=== PATIENT | male | born 1980 | race Caucasian/White ===

== ENCOUNTER → 2020-11-24 06:57 | Outpatient (CLI) | payer OTHER, SELFPAY ==
[2020-11-24 18:17] LABS: SARS-CoV-2 RNA PCR Negative
== END ==
PROVIDERS: PCP Family Medicine; Visit Provider Physician Assistant
DX: R68.89 Other general symptoms and signs (principal); Z20.822 Contact with and (suspected) exposure to COVID-19
CPT/HCPCS: C9803; U0003; U0005

== ENCOUNTER 2021-02-16 08:55 | Outpatient (CLI) | payer OTHER, SELFPAY ==
--- NOTE | ~2021-02-16 | XR_ITS ---
EXAMINATION: XR shoulder RT min 2V DATE: 02/16/2021 09:17 INDICATION: Right shoulder pain. TECHNIQUE: 4 views of right shoulder were obtained. COMPARISON: None. FINDINGS: Bone alignment is normal. No fracture. 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 Joint spaces otherwise normal. IMPRESSION: 1. Osteolysis of distal clavicle, which may be seen with repetitive microtrauma or less commonly rheu matoid arthritis or hyperparathyroidism. Reviewed, dictated and finalized at location A. IMPRESSION: 1. Osteolysis of distal clavicle, which may be seen with repetitive microtrauma or less commonly rheumatoid arthritis or hyperparathyroidism.
== END 2021-02-16 08:56 | disposition home or self-care (01) ==
LOC: ANHIMG 08:59
PROVIDERS: PCP Family Medicine; Visit Provider Physician Assistant
DX: M25.511 Pain in right shoulder (principal)
CPT/HCPCS: 73030

== ENCOUNTER 2021-03-12 10:33 | Outpatient (CLI) | payer OTHER, SELFPAY ==
--- NOTE | ~2021-03-12 | CT_ITS ---
EXAMINATION: CT shoulder RT wo con DATE: 03/12/2021 11:01 INDICATION: Chronic right shoulder pain. TECHNIQUE: Computed tomography (CT) of the right shoulder was performed without intravenous contrast. Automated exposure control and iterative reconstruction technique were employed. The dose-length pro duct was 597.84 mGy-cm. COMPARISON: Right shoulder radiographs 02/16/2021 FINDINGS: Bone alignment is normal. No fracture. The glenohumeral joint is normal. There is osteolysi s of distal clavicle with sparing of some of the distal cortex. The acromioclavicular joint is otherw ise normal. There is no asymmetric fatty atrophy of the rotator cuff muscle bellies. IMPRESSION: 1. Osteolysis of distal clavicle, most likely secondary to repetitive microtrauma (such as weight lif ting). Reviewed, dictated and finalized at location A. PHONIC NURSE CASE MANAGER IMPRESSION: 1. Osteolysis of distal clavicle, most likely secondary to repetitive microtrau ma (such as weight lifting).
== END 2021-03-12 10:34 | disposition home or self-care (01) ==
LOC: ANHIMG 10:37
PROVIDERS: PCP Family Medicine; Visit Provider Family Medicine
DX: M25.511 Pain in right shoulder (principal); M89.511 Osteolysis, right shoulder; R93.89 Abnormal findings on diagnostic imaging of other specified body structures
CPT/HCPCS: 73200

== ENCOUNTER 2021-06-13 03:45 | Inpatient (IN) | payer OTHER, SELFPAY ==
[2021-06-13] VITALS (36 sets, daily range): BP systolic 121–164; BP diastolic 57–101; PULSE 72–105; RESP 14–97; TEMP 35.8–36.7; O2SAT 95–100
--- NOTE | ~2021-06-13 | XR_ITS ---
EXAMINATION: XR chest 2V 06/13/2021 04:15 INDICATION: Chest pain PROCEDURE: 2 view chest COMPARISON: 08/06/2012 FINDINGS: The lungs are clear. The cardiomediastinal silhouette is within normal limits. There are no pleural effusions. There is no pneumothorax suspected. IMPRESSION: 1: NO ACUTE CARDIOPULMONARY DISEASE. Reviewed, dictated and finalized at location A. ING MACHINE OPERATOR
--- NOTE | 2021-06-13 04:00 | ECG_ITS ---
Measurements Intervals [place] Rate: 100 P: 56 GA: 172 QRS: 43 QRSD: 85 T: 37 QT: 332 QTc: 430 Interpretive Statements SINUS TACHYCARDIA INCOMPLETE RIGHT BUNDLE BRANCH BLOCK BASELINE WANDER- II, III, AVL, AVF BORDERLINE ECG Electronically Signed On 06-13-2021 7:57:06 SOFTWARE BUILD ENGINEER by Syed Avalos D.O.
--- NOTE | 2021-06-13 04:11 | PC.NURSE ---
Patient taken to xray.
--- NOTE | 2021-06-13 04:12 | ED.CHESTPAIN ---
HPI - Chest Pain General Chief Complaint: Chest Pain Stated Complaint: chest pain Time Seen by Provider: 06/13/21 03:48 History of Present Illness HPI narrative: Patient is a 40-year-old male who presents ER with chest pain. Began yesterday afternoon. Left side. Going into his left jaw and gums as well as down his left arm. Progressed throughout the day. Became severe at 3 AM which prompted him to come to the ER for evaluation. Reports that the pain resolved prior to his arrival to the ER. Reports he is experiencing some flushed sweats with this. No acid reflux. No nausea or vomiting. Recently placed on steroids and azithromycin for sinus infection. Denies fevers or chills no cough. No exertional chest pain or shortness of breath. No aggravating factors. No recent trauma. Related Data Allergies Allergy/AdvReac Type Severity Reaction Status Date / Time No Known Allergies Allergy Verified 06/13/21 04:33 Review of Systems Review of Systems: All systems reviewed & are unremarkable except as noted in HPI and below Constitutional: Constitutional: Denies chills, Denies fever(s) and Denies weakness ENT: Reports nasal congestion and Denies sore throat Cardiovascular: Cardiovascular: Reports chest pain, Denies rapid heart rate and Reports radiating jaw, neck or arm pain Respiratory: Respiratory: Denies cough, Denies dyspnea and Denies wheezing Gastrointestinal: Gastrointestinal: Denies abdominal pain, Denies nausea and Denies vomiting Musculoskeletal: Musculoskeletal: Denies back pain, Denies arthralgias and Denies joint swelling PMFSH Past Medical History Medical History Asthma Surgical History Surgical History History of decompression of ulnar nerve (~2013) Rt Family History Family History Mother Family history of suicide, Onset Age: 59 Family history of bipolar disorder Sibling Patient's sister is in good health Father Acute myocardial infarction, Onset Age: 59 Hypertension Social History Social History Social History: Smoking packs per day: 1 Smoking cigarettes per day: 20.0 Years smoked: 12 Smoking pack-years: 12.00 Smoking status: Current every day smoker Tobacco type: cigarettes Second hand tobacco smoke exposure: Yes Alcohol intake: current Drinks per week: 3 Substance use: never Substance use type: does not use Gender identity (if verbalized by the patient): Male Sexual Orientation (if Verbalized by the Patient): Straight or Heterosexual Exam Narrative: GENERAL: Well-appearing, well-nourished, and in no acute distress. HEAD: Normocephalic, atraumatic. ENT: Mucous membranes moist. No pharyngeal erythema, uvula midline nonedematous, tonsils normal in appearance. NECK: Supple. No reproducible paraspinal muscular tenderness. CHEST: Clear to auscultation. No respiratory distress. No reproducible chest wall tenderness. HEART: Regular rate and rhythm. Normal peripheral pulses. ABDOMEN: Soft, nontender, nondistended. EXTREMITIES: Normal range of motion. No edema. SKIN: Warm, dry, no rash. NEURO: Alert and oriented x3. PSYCH: Normal mood and affect. Course Reevaluation(s) Reevaluation #1: Patient informed of results. Now reports recurrent chest pain left side 4/10 without radiation. Repeat EKG without change. Will place half inch Nitropaste and contact cardiology. Date: 06/13/21 Time: 05:40 Reevaluation #2: Discussed case with hospitalist and cardiology. [place] best for cardiology be primary since patient has no other medical problems and has a primary cardiac issue after speaking with the hospitalist. Patient being started on heparin and being placed 9 you. Date: 06/13/21 Time: 06:52 Vital Signs Vital signs: Vital Signs Pulse
[2021-06-13] MEDS: ASPIRIN 81 MG CHEWABLE TABLET 324 MG PO (04:17)
[2021-06-13 04:25] LABS: Basophils Absolute Auto 0.1 K/mm3 (0.0-0.1); Basophils Percent Auto 0.7 % (0.2-1.2); Eosinophils Absolute Auto 0.1 K/mm3 (0-0.3); Eosinophils Percent Auto 0.7 % (0-4.4); Hemoglobin 16.6 g/dL (14.0-18.0); Immature Granulocyte Absolute 0.08 K/mm3 (0.00-0.031); Immature Granulocyte Percent A 0.6 % (0-0.5); Lymphocytes Absolute Auto 2.68 K/mm3 (0.9-3.2); Lymphocytes Percent Auto 20.6 % (18.3-44.2); Mean Corpuscular HGB Conc 33.9 g/dl (32-36); Mean Corpuscular Hemoglobin 31.4 pg (26-34); Mean Corpuscular Volume 92.6 fl (80-100); Mean Platelet Volume 9.5 fl (7.4-10.4); Monocytes Absolute Auto 0.7 K/mm3 (0.1-0.6); Monocytes Percent Auto 5.4 % (2.6-8.5); Neutrophils Absolute Auto 9.4 K/mm3 (1.3-6.7); Platelet Count Result 306 k/mm3 (150-375); Red Blood Count 5.29 M/mm3 (4.6-6.20); Red Cell Distribution Width 12.7 % (11.5-14.5)
--- NOTE | 2021-06-13 04:32 | PC.NURSE ---
Talked to Sandhya in lab at 04:32 to add on D Dimer
[2021-06-13 04:47] LABS: Partial Thromboplastin Time 25.8 SECONDS (22.3-36.8); Prothrombin Time 12.4 Seconds (11.1-14.7)
[2021-06-13 04:50] LABS: Alanine Aminotransferase 30 U/L (4-50); Albumin Level 4.3 g/dL (3.5-5.1); Alkaline Phosphatase 74 U/L (38-126); Anion Gap 9 mmol/L (8-16); Aspartate Amino Transferase 28 U/L (17-59); Bilirubin,Total 0.3 mg/dL (0.2-1.3); Blood Urea Nitrogen 25 mg/dL (9-20); Calcium 9.6 mg/dL (8.4-10.2); Carbon Dioxide 26 mmol/L (22-30); Chloride 104 mmol/L (98-107); Estimated CRCL calculation 94 ml/min; Estimated Glomerular Filt Rate > 60; Glucose 113 mg/dL (65-110); Lipase 94 U/L (23-300); Potassium 4.2 mmol/L (3.4-5.0); Sodium 139 mmol/L (137-145)
[2021-06-13 05:19] LABS: Troponin I 0.088 ng/mL (0.000-0.034)
--- NOTE | 2021-06-13 05:31 | ECG_ITS ---
Measurements Intervals [place] Rate: 79 P: 55 AL: 190 QRS: 36 QRSD: 83 T: 34 QT: 355 QTc: 409 Interpretive Statements SINUS RHYTHM INCOMPLETE RIGHT BUNDLE BRANCH BLOCK BASELINE ARTIFACT- II, III, AVR, AVF, V1, V3-V6 BORDERLINE ECG Electronically Signed On 06-13-2021 7:56:27 TRUCK REPAIR SUPERVISOR by Syed Avalos D.O.
[2021-06-13 05:33] LABS: D Dimer < 0.22 ug/mL (<0.48)
[2021-06-13] MEDS: NITROGLYCERIN OINTMENT 1 INCH DOSE 0.5 INCH TRANSDERM (05:38)
[2021-06-13] MEDS: HEPARIN SODIUM 5,000 UNITS/ML VIAL 4000 UNITS IV PUSH (06:04)
[2021-06-13] MEDS: HEPARIN SOD/D5W 100 UNITS/ML 25,000 UNITS/250 ML BAG 10 UNITS IV CONT (06:30)
--- NOTE | 2021-06-13 07:00 | PC.NURSE ---
Patient to be taken up to floor at 0715, health diagnostics teacher aware.
--- NOTE | 2021-06-13 07:11 | PC.NURSE ---
Report taken from SARAH Garcia.
[2021-06-13 07:36] LABS: Troponin I 0.333 ng/mL (0.000-0.034)
[2021-06-13 10:54] LABS: Troponin I 0.713 ng/mL (0.000-0.034)
--- NOTE | 2021-06-13 11:26 | PM.CNCAR ---
Assessment and Plan Assessment and plan (1) Non-ST elevation CO (NSTEMI): Code(s): I21.4 - Non-ST elevation (NSTEMI) myocardial infarction Status: Acute Assessment and Plan: Symptoms are consistent with acute coronary syndrome in the form of a non ST elevation myocardial infarction. Since he has recurrent chest pain, I talked about the risks benefits alternatives of cardiac catheterization to define his anatomy. He understands and is agreeable. This will be performed today. Will continue IV heparin. Start aspirin 81 mg p.o. daily, metoprolol tartrate 25 mg p.o. b.i.d., nitroglycerin paste will be continued, atorvastatin 40 mg p.o. daily to be started (2) Tobacco use: Code(s): Z72.0 - Tobacco use Status: Acute (3) Bronchitis: Code(s): J40 - Bronchitis, not specified as acute or chronic Status: Acute (4) Asthma: Code(s): J45.909 - Unspecified asthma, uncomplicated Status: Acute History of Present Illness History of Present Illness Consult date/time: 06/13/21 11:26 Requesting physician: Jose Reyes MD Consult reason: chest pain and Other (Non-STEMI) Reason For Visit: NSTEMI Narrative: Reason consultation: Chest pain, non-STEMI Date of service 06/13/2021 Requesting provider: Dr. Reyes History: patient 40-year-old male who presents to the ER because of chest pain. He did have a recent upper respiratory tract infection treated with antibiotics and steroids. He had been feeling well up until recently whenever he developed some chest pain that was mild at around 12:00 p.m. yesterday. It did wax and wane for several hours but progressively worsened. By about 7:00 p.m. yesterday evening it started to be consistently present and it persisted and worsened to the point that at 3:00 a.m. it was severe and he came to the hospital for further evaluation and treatment. He describes the pain as squeezing. It radiates to the left arm and into the left neck. He was given nitroglycerin emergency department as well as aspirin with relief of his symptoms. He was sweaty as well as having some shortness of breath and no nausea. His troponins are positive and up trending. He has had some recurrence of his pain over the past hour or so and is now 4/10. He otherwise has been having no exertional chest pain, syncope, presyncope, paroxysmal nocturnal dyspnea, orthopnea, edema palpitations. No shortness of breath. He does smoke. He has a family history of heart disease including his father who a myocardial infarction 59 Review of Systems Review of Systems: All systems reviewed & are unremarkable except as noted in HPI and below Constitutional: Constitutional: Denies weakness Eyes: Eyes: Denies blurry vision ENT: Reports Normal hearing present Cardiovascular: Cardiovascular: Reports chest pain Respiratory: Respiratory: Denies dyspnea Gastrointestinal: Gastrointestinal: Denies abdominal pain Genitourinary: Genitourinary: Denies dysuria Musculoskeletal: Musculoskeletal: Denies neck pain Integumentary/Breasts: Skin/Breast: Denies dry skin Neurologic: Denies headache(s) Psychiatric: Psychiatric: Denies anxiety Endocrine: Endocrine: Denies fatigue Hematologic/Lymphatic: Hematologic/Lymphatic: Denies easy bleeding Allergic/Immunologic: Allergic/Immunologic: Denies GI upset with certain foods PMFSH Past Medical History Medical History Asthma Tobacco use Surgical History Surgical History History of decompression of ulnar nerve (~2013) Rt Family History Family History Mother Family history of suicide, Onset Age: 59 Family history of bipolar disorder Sibling Patient's sister is in good health Father Acute myocardial infarction, Onset Age: 59 Hypertension Social History Social History (Reviewed 06/13/21 @ 11:31 by Ganesh Tam
--- NOTE | 2021-06-13 11:43 | PM.IMHP ---
H&P: HPI History of Present Illness Date/Time: 06/13/21 11:43 Chief Complaint: Chest pain, non-STEMI Narrative: Date of service 06/13/2021 History: patient 40-year-old male who presents to the ER because of chest pain. He did have a recent upper respiratory tract infection treated with antibiotics and steroids. He had been feeling well up until recently whenever he developed some chest pain that was mild at around 12:00 p.m. yesterday. It did wax and wane for several hours but progressively worsened. By about 7:00 p.m. yesterday evening it started to be consistently present and it persisted and worsened to the point that at 3:00 a.m. it was severe and he came to the hospital for further evaluation and treatment. He describes the pain as squeezing. It radiates to the left arm and into the left neck. He was given nitroglycerin emergency department as well as aspirin with relief of his symptoms. He was sweaty as well as having some shortness of breath and no nausea. His troponins are positive and up trending. He has had some recurrence of his pain over the past hour or so and is now 4/10. He otherwise has been having no exertional chest pain, syncope, presyncope, paroxysmal nocturnal dyspnea, orthopnea, edema palpitations. No shortness of breath. He does smoke. He has a family history of heart disease including his father who a myocardial infarction 59 Review of Systems Review of Systems: All systems reviewed & are unremarkable except as noted in HPI and below Constitutional: Constitutional: Denies weakness Eyes: Eyes: Denies blurry vision ENT: Reports Normal hearing present Cardiovascular: Cardiovascular: Reports chest pain Respiratory: Respiratory: Denies dyspnea Gastrointestinal: Gastrointestinal: Denies abdominal pain Genitourinary: Genitourinary: Denies dysuria Musculoskeletal: Musculoskeletal: Denies back pain and Denies neck pain Integumentary/Breasts: Skin/Breast: Denies dry skin Neurologic: Denies headache(s) Psychiatric: Psychiatric: Denies anxiety Endocrine: Endocrine: Denies change in libido Hematologic/Lymphatic: Hematologic/Lymphatic: Denies easy bleeding Allergic/Immunologic: Allergic/Immunologic: Denies GI upset with certain foods PMFSH Past Medical History Medical History Asthma Tobacco use Surgical History Surgical History History of decompression of ulnar nerve (~2013) Rt Family History Family History Mother Family history of suicide, Onset Age: 59 Family history of bipolar disorder Sibling Patient's sister is in good health Father Acute myocardial infarction, Onset Age: 59 Hypertension Social History Social History Social History: Smoking packs per day: 1 Smoking cigarettes per day: 20.0 Years smoked: 14 Smoking pack-years: 14.00 Smoking status: Current every day smoker Tobacco type: cigarettes Second hand tobacco smoke exposure: Yes Alcohol intake: current Drinks per week: 2 Substance use: never Substance use type: does not use Gender identity (if verbalized by the patient): Male Sexual Orientation (if Verbalized by the Patient): Straight or Heterosexual Spiritual care concerns: No Meds Home Medications and Allergies Home Medications Medication Instructions Recorded Confirmed Type albuterol sulfate 90 mcg/actuation 2 inh INHALATION Q4H PRN #8.5 g 02/16/21 06/13/21 Rx aerosol inhaler prednisone 10 mg tablet See Rx Instructions PO DAILY 20 06/04/21 06/07/21 Rx Days #50 tablet Allergies Allergy/AdvReac Type Severity Reaction Status Date / Time No Known Allergies Allergy Verified 06/13/21 04:33 Vital Signs Vital Signs - 24 hr 06/13/21 03:52 06/13/21 03:53 06/13/21 04:00 Temperature Pulse Rate 101 H 101 H 90 Res
[2021-06-13 12:26] LABS: Partial Thromboplastin Time 29.6 SECONDS (22.3-36.8)
--- NOTE | 2021-06-13 13:46 | P.PCNCC_ITS ---
Cardiac Cath Procedure Note Date of procedure:: 06/13/21 Performing physician:: Stone Ramos MD Assessment and Plan Additional Plan PROCEDURE 1. LHC and coronary angiogram 2. PCI to acute subtotal occlusion of LCX culprit lesion of NSTEMI INDICATION NSTEMI HISTORY 40 Yrs old male admitted with chest pain, Pain is recurrent today and more persistent. Trop is rising. PROCEDURE DETAILS Consent obtained and access site prepped and draped in sterile fashion Sedation was done with versed 2 mg and fentanyl 100 mcg with continuos monitoring and supervision by myself and coding quality coordinator Obtained in rt radial artery with modified Seldinger technique Coronary angiogram was done using Tig HEMODYNAMICS Aorta: 140/70 LV: 140/25 CORONARY ANGIOGRAM Left main: Normal gives LAD, LCX and ramus LAD: Large vessel wraps around apex, mild distal disease (<30%), gives one large diagonal with proximal mild (< 30%) stenosis LCX: Intermediate size vessel cont at OM3, OM1 and OM2 are small. mid LCX has 99% stenosis subtotal occlusion, JESUS 2 flow. Culprit lesion for NSTEMI RCA: dominant, separate ostium from conus and difficult to engage, distal RCA with 40% stenosis. gives PDA and rPL with no obstructive disease. PCI DETAILS #1 lesion: mid LCX Pre-intervention: mid LCX has 99% stenosis subtotal occlusion, JESUS 2 flow. Culprit lesion for NSTEMI, class B Anticoagulation with heparin to target ACT > 250 sec Guide catheter: CLS 3.0 5 F Guide wire: Runthrough used to cross lesion into distal vessel Balloon angioplasty: Emerge 2.5 * 12 mm balloon inflated at 12 ACE Stent: Resolute Anurag 3.0 * 18 mm stent delivered at 12 ACE Post-intervention: [employer] apex 3.0 * 8 mm inflated at 20 ACE COMPLICATION None CONCLUSION Successful PCI to LCX culprit lesion for NSTEMI with one BA 3.0 * 18 mm Anurag stent RECOMMENDATION DAPT Statin
[2021-06-13 13:56] LABS: Activated Clotting Time 238 SEC (74-137)
[2021-06-13 13:56] LABS: Activated Clotting Time 243 SEC (74-137)
--- NOTE | 2021-06-13 16:59 | ADMGEN ---
This patient, Celso Dial, was admitted to IMU Room 203-01 at 0727. Patient/family oriented to hospital policies and general routines including ID bracelet, bed and alarms, visiting hours, pain management, procedures, bathroom and other care routines, personal items, smoking policy, room service/diet, and visiting hours. Information on how to activate the Rapid Response Team has been discussed. Patient/Family are encouraged to report perceived risks to care and to ask questions if they do not understand what they are told or what they should do.
[2021-06-13] MEDS: TICAGRELOR 90 MG TABLET PO (20:40)
[2021-06-13] MEDS: METOPROLOL TARTRATE 25 MG TABLET PO (20:40)
[2021-06-14] VITALS (9 sets, daily range): BP systolic 110–138; BP diastolic 67–82; PULSE 63–74; RESP 16–20; TEMP 36.4–36.6; O2SAT 98–99
--- NOTE | 2021-06-14 | ECHO_ITS ---
Patient Info Name: Celso Dial Age: 40 years : 1980 Gender: Male Ht: 72 in Wt: 181 lbs BSA: 2.05 m2 HR: 65 bpm BP: 110 / 70 mmHg Heart Rhythm: Sinus Rhythm Technical Quality: Fair Exam Date: 06/14/2021 11:25 AM Exam Location: [facility] Pulmonary Patient Status: Inpatient Admit Date: 06/13/2021 Staff Ordering Physician: Ganesh Pratt MD Steam And Power Supervisor: Radha Guillory RDCS Attending Provider: Ganesh Pratt MD Referring Physician: Terence MARTINO; Exam Type: CA echo doppler color flow Study Info Indications - nstemi Complete two-dimensional, color flow and Doppler transthoracic echocardiogram is performed. Summary 1. Complete two-dimensional, color flow and Doppler transthoracic echocardiogram is performed. 2. Normal 2D/Doppler echocardiogram. Left Ventricle Left ventricular chamber dimension is normal. Left ventricular systolic function is normal, estimated at 60-65%. The left ventricular diastolic function is normal. Right Ventricle Right ventricular chamber dimension is normal. Left Atria Left atrial chamber dimension is normal. Right Atria Right atrial chamber dimension is normal. Aortic Valve The aortic valve is normal. Pulmonic Valve The pulmonic valve is normal. Mitral Valve The mitral valve has normal leaflets. Tricuspid Valve The tricuspid valve leaflets are normal. Pericardium/Pleural The pericardium appears normal. Aorta The aortic root size at the sinus of Valsalva is normal. Left Ventricular Outflow Tract Name Value Normal LVOT 2D LVOT Diameter 2.0 cm LVOT Doppler LVOT Peak Gradient 2 mmHg LVOT Mean Gradient 1 mmHg LVOT VTI 13 cm LVOT VTI/AV VTI Ratio 0.7 LVOT Stroke Volume 42 ml LVOT CO 2.6 l/min LVOT CI 1.3 l/min/m2 Pulmonic Valve Name Value Normal RVOT Doppler RVOT Peak Gradient 1 mmHg PV Doppler PV Peak Gradient 3 mmHg Mitral Valve Name Value Normal MV Doppler MV Decel [place] 534 cm/s2 MV PHT 46 ms MV Area (PHT) 4.8 cm2 4.0-5.0 MV Diastolic Function MV E Peak Velocity 85 cm/s MV A Peak Velocity
[2021-06-14 05:05] LABS: Basophils Absolute Auto 0.1 K/mm3 (0.0-0.1); Basophils Percent Auto 0.7 % (0.2-1.2); Eosinophils Absolute Auto 0.2 K/mm3 (0-0.3); Eosinophils Percent Auto 1.4 % (0-4.4); Hematocrit 45.9 % (42.0-52.0); Hemoglobin 15.3 g/dL (14.0-18.0); Immature Granulocyte Absolute 0.09 K/mm3 (0.00-0.031); Immature Granulocyte Percent A 0.8 % (0-0.5); Lymphocytes Absolute Auto 2.84 K/mm3 (0.9-3.2); Lymphocytes Percent Auto 24.7 % (18.3-44.2); Mean Corpuscular HGB Conc 33.3 g/dl (32-36); Mean Corpuscular Hemoglobin 30.6 pg (26-34); Mean Corpuscular Volume 91.8 fl (80-100); Mean Platelet Volume 9.3 fl (7.4-10.4); Monocytes Absolute Auto 0.7 K/mm3 (0.1-0.6); Monocytes Percent Auto 6.1 % (2.6-8.5); Neutrophils Absolute Auto 7.6 K/mm3 (1.3-6.7); Neutrophils Percent Auto 66.3 % (45.5-73.1); Platelet Count Result 298 k/mm3 (150-375); White Blood Count 11.5 K/mm3 (4.5-10.0)
[2021-06-14] MEDS: ASPIRIN 81 MG ENTERIC TABLET PO (10:21)
[2021-06-14] MEDS: METOPROLOL TARTRATE 25 MG TABLET PO (10:21)
[2021-06-14] MEDS: lisinopriL 2.5 MG TABLET PO (10:22)
[2021-06-14] MEDS: TICAGRELOR 90 MG TABLET PO (10:22)
--- NOTE | 2021-06-14 12:18 | PC.NURSE ---
Cardiopulmonary Rehab Services flyer was given to patient.
--- NOTE | 2021-06-14 12:59 | PM.DS ---
DS: Admitting Diagnosis Discharge Date 06/14/2021 Admitting Diagnosis Chest pain DS: Discharge Diagnosis Discharge Diagnosis (1) Non-ST elevation NE (NSTEMI): Code(s): I21.4 - Non-ST elevation (NSTEMI) myocardial infarction Status: Acute Assessment and Plan: Presented with chest pain symptoms consistent with acute coronary syndrome in the form of a non ST-elevation myocardial infarction. He was taken to the cardiac labor custodian and was found to have a 99% subtotal occlusion of the mid circumflex. This was the culprit lesion for his NSTEMI. This lesion was intervened on with a 3.0 x 18 mm [place] stent. On dual anti-platelet therapy with aspirin and Brilinta. He has been placed on a statin. No persistent chest pain. Sinus rhythm on telemetry no ectopy (2) Tobacco use: Code(s): Z72.0 - Tobacco use Status: Acute Assessment and Plan: Tobacco abuse counseling was performed. (3) Asthma: Code(s): J45.909 - Unspecified asthma, uncomplicated Status: Acute Assessment and Plan: Currently quiescent (4) Bronchitis: Code(s): J40 - Bronchitis, not specified as acute or chronic Status: Acute Assessment and Plan: Recent treatment with steroids and antibiotics DS: Summary Hospital Course Hospital Course: Patient presented to the hospital with complaints of chest pain and no evidence of myocardial ischemia by elevated troponin levels. He did not have any EKG changes. He was taken to the cardiac labor custodian for coronary angiogram in the setting of NSTEMI. He was found have a 99% occlusion to his mid circumflex artery. This was stented and resulted in good jew of flow. Patient has recovered without complications in the hospital. He has remained free of chest pain since his intervention. Today, he is feeling well and is in stable condition. Appropriate for discharge home today. Time spent discussing smoking cessation with patient: 3 to 10 minutes Status at Discharge Functional status at discharge: independent ambulation Time Spent with Patient Time attestation: Total time spent providing and/or coordinating discharge services: Time spent: Greater than 30 minutes Exam Narrative: Awake alert oriented. Appears stated age Const: General: uncomfortable HENMT: General nose exam: Normal nares present Eyes: Sclera: sclerae normal Neck: Neck: supple and no JVD Carotids: no bruits Chest: Other: No reproducible chest wall pain to palpation Resp: Auscultation: clear to auscultation bilaterally Cardio: Rate: regular rate Rhythm: regular rhythm GI: Inspection: non-distended Auscultation: normal bowel sounds Skin: General skin exam: normal color Neuro: Cranial nerves: Yes Normal hearing present Cognition (Neuro): normal cognition Speech: normal speech Extrem: General: normal to inspection and no edema Psych: Mental Status: mental status grossly normal DS: Data Data Completed and Pending Labs on day of discharge: Labs from last 24 hours 06/14/21 06/13/21 06/13/21 04:35 13:29 13:11 WBC 11.5 H RBC 5.00 Hgb 15.3 Hct 45.9 MCV 91.8 MCH 30.6 MCHC 33.3 RDW 13.0 Plt Count 298 MPV 9.3 Immature Gran % (Auto) 0.8 H Neut % (Auto) 66.3 Lymph % (Auto) 24.7 [place] % (Auto) 6.1 Eos % (Auto) 1.4 Baso % (Auto) 0.7 Lymph # (Auto) 2.84 [place] # (Auto) 0.7 H Eos # (Auto) 0.2 Baso # (Auto) 0.1 Abs Immat Gran (auto) 0.09 H Absolute Neuts (auto) 7.6 H Absolute Nucleated RBC 0.0 Nucleated RBC % 0.0 Activ Coag Time [place] 243 H 238 H Discharge Plan Discharge Consulting providers: Ganesh Pratt Discharging Clinician: Rosalia Wise Patient Disposition: Home, Self-Care Activity: may shower Diet: heart healthy Wound Care Instructions: other - see discharge instructions Discharge Instructions:
== END 2021-06-14 14:50 | disposition home or self-care (01) | DRG 247 ==
LOC: ANHED 04:21 → ANHIMU 06:47
PROVIDERS: Internal Medicine Interventional Cardiology; Admitting Provider Internal Medicine Cardiovascular Disease; Emergency Provider Emergency Medicine; PCP Family Medicine; Visit Provider Internal Medicine Cardiovascular Disease
PROC: 4A023N7 Measurement of Cardiac Sampling and Pressure, Left Heart, Percutaneous Approach (ICD-10-PCS; CPT 93452; principal; 2021-06-13 12:05)
PROC: 027034Z Dilation of Coronary Artery, One Artery with Drug-eluting Intraluminal Device, Percutaneous Approach (ICD-10-PCS; CPT 92928; 2021-06-13 12:05)
DX: I21.4 Non-ST elevation (NSTEMI) myocardial infarction (principal); J45.909 Unspecified asthma, uncomplicated; F17.210 Nicotine dependence, cigarettes, uncomplicated
CPT/HCPCS: 36415; 71046; 80053; 83690; 84484; 85025; 85380; 85610; 85730; 93005; 93306; 93458; 96374; 99285; A9270; C1725; C1769; C1874; C1887; C1894; C9600; G0378; J0131; J1644; J2250; J3010; J7040

== ENCOUNTER 2021-06-15 16:24 | Observation (INO) | payer OTHER, SELFPAY ==
[2021-06-15] VITALS (22 sets, daily range): BP systolic 103–127; BP diastolic 46–78; PULSE 61–76; RESP 12–25; TEMP 36.1–36.7; O2SAT 97–100; BMI 25.2
--- NOTE | ~2021-06-15 | XR_ITS ---
EXAMINATION: XR chest 2V DATE: 06/15/2021 17:03 INDICATION: Left-sided chest pain. TECHNIQUE: PA and lateral views of the chest were obtained. COMPARISON: Chest radiograph dated 06/13/2021 FINDINGS: The lungs remain clear with no focal airspace opacities, pulmonary edema, pleural effusion or pneumot horax. The cardiomediastinal silhouette is normal. Visualized bones and soft tissues are unremarkable . IMPRESSION: Normal chest radiograph. Reviewed, dictated and finalized at location A. EATION THERAPIST IMPRESSION: Normal chest radiograph.
--- NOTE | 2021-06-15 16:25 | ECG_ITS ---
Measurements Intervals [place] Rate: 70 P: 39 AR: 164 QRS: 38 QRSD: 83 T: 0 QT: 366 QTc: 396 Interpretive Statements SINUS RHYTHM BASELINE ARTIFACT- I, II, III, AVR, AVF, V2-V6 NORMAL ECG Electronically Signed On 06-15-2021 18:14:16 GAS STATION CLERK by Syed Avalos D.O.
[2021-06-15] MEDS: ASPIRIN 81 MG CHEWABLE TABLET 324 MG PO (16:51)
[2021-06-15 16:55] LABS: Basophils Absolute Auto 0.1 K/mm3 (0.0-0.1); Basophils Percent Auto 0.8 % (0.2-1.2); Eosinophils Absolute Auto 0.2 K/mm3 (0-0.3); Eosinophils Percent Auto 1.6 % (0-4.4); Hematocrit 49.2 % (42.0-52.0); Hemoglobin 16.4 g/dL (14.0-18.0); Immature Granulocyte Percent A 0.7 % (0-0.5); Lymphocytes Absolute Auto 3.54 K/mm3 (0.9-3.2); Lymphocytes Percent Auto 24.4 % (18.3-44.2); Mean Corpuscular HGB Conc 33.3 g/dl (32-36); Mean Platelet Volume 9.1 fl (7.4-10.4); Monocytes Absolute Auto 0.9 K/mm3 (0.1-0.6); Monocytes Percent Auto 6.1 % (2.6-8.5); Neutrophils Absolute Auto 9.6 K/mm3 (1.3-6.7); Neutrophils Percent Auto 66.4 % (45.5-73.1); Platelet Count Result 319 k/mm3 (150-375); Red Blood Count 5.29 M/mm3 (4.6-6.20); Red Cell Distribution Width 12.7 % (11.5-14.5); White Blood Count 14.5 K/mm3 (4.5-10.0)
[2021-06-15 17:01] LABS: INR 0.9; Prothrombin Time 11.7 Seconds (11.1-14.7)
[2021-06-15 17:02] LABS: Partial Thromboplastin Time 25.6 SECONDS (22.3-36.8)
[2021-06-15 17:04] LABS: Alanine Aminotransferase 39 U/L (4-50); Albumin Level 4.4 g/dL (3.5-5.1); Alkaline Phosphatase 73 U/L (38-126); Anion Gap 4 mmol/L (8-16); Aspartate Amino Transferase 31 U/L (17-59); Bilirubin,Total 0.4 mg/dL (0.2-1.3); Blood Urea Nitrogen 18 mg/dL (9-20); Calcium 9.5 mg/dL (8.4-10.2); Carbon Dioxide 32 mmol/L (22-30); Chloride 102 mmol/L (98-107); Estimated CRCL calculation 94 ml/min; Estimated Glomerular Filt Rate > 60; Glucose 100 mg/dL (65-110); Lipase 58 U/L (23-300); Potassium 4.4 mmol/L (3.4-5.0); Sodium 138 mmol/L (137-145)
[2021-06-15 17:19] LABS: Troponin I 0.353 ng/mL (0.000-0.034)
--- NOTE | 2021-06-15 17:57 | ED.CHESTPAIN ---
HPI - Chest Pain General Chief Complaint: Chest Pain Stated Complaint: chest pain Time Seen by Provider: 06/15/21 17:02 History of Present Illness HPI narrative: Patient is a 40-year-old male who presents ER with left-sided chest pain. Symptoms began 1 hour prior to arrival. They resolved after taking aspirin here. Pain was in the left chest just beneath the pectoralis with radiation down the left arm with some tingling in the fourth and fifth digit in the back of the hand. Onset at rest. Associated with some sweating. No shortness of breath. Patient had a stent placed in the left circumflex artery 2 days ago, has been compliant with all home medication. Related Data Allergies Allergy/AdvReac Type Severity Reaction Status Date / Time No Known Allergies Allergy Verified 06/13/21 04:33 Review of Systems Review of Systems: All systems reviewed & are unremarkable except as noted in HPI and below Constitutional: Constitutional: Denies chills, Denies fever(s) and Denies weakness Comments: Sweats Cardiovascular: Cardiovascular: Reports chest pain, Denies rapid heart rate and Reports radiating jaw, neck or arm pain Respiratory: Respiratory: Denies cough, Denies dyspnea and Denies wheezing Gastrointestinal: Gastrointestinal: Denies abdominal pain, Denies nausea and Denies vomiting Neurologic: Denies focal weakness and Reports numbness PMFSH Past Medical History Medical History Asthma CAD (coronary atherosclerotic disease) Myocardial infarct Tobacco use Surgical History Surgical History (Updated 06/15/21 @ 18:25 by Jose Reyes MD) History of decompression of ulnar nerve (~2013) Rt History of percutaneous coronary intervention Stent left circumflex 06/13/21. Family History Family History Mother Family history of suicide, Onset Age: 59 Family history of bipolar disorder Sibling Patient's sister is in good health Father Acute myocardial infarction, Onset Age: 59 Hypertension Social History Social History Social History: Smoking packs per day: 1 Smoking cigarettes per day: 20.0 Years smoked: 14 Smoking pack-years: 14.00 Smoking status: Current every day smoker Tobacco type: cigarettes Second hand tobacco smoke exposure: Yes Alcohol intake: current Drinks per week: 2 Substance use: never Substance use type: does not use Gender identity (if verbalized by the patient): Male Sexual Orientation (if Verbalized by the Patient): Straight or Heterosexual Spiritual care concerns: No Exam Narrative: GENERAL: Well-appearing, well-nourished, and in no acute distress. HEAD: Normocephalic, atraumatic. ENT: Mucous membranes moist. CHEST: Clear to auscultation. No respiratory distress. HEART: Regular rate and rhythm. Normal peripheral pulses. ABDOMEN: Soft, nontender, nondistended. EXTREMITIES: Normal range of motion. No edema. Well-healed puncture site right wrist. SKIN: Warm, dry, no rash. NEURO: Alert and oriented x3. PSYCH: Normal mood and affect. Course Course Emergency Course: Discussed with cardiology. Will admit for observation. We will put an order for evening medication and then keep n.p.o. at midnight. Patient chest pain-free at this time. Discussed treatment plan and patient verbalized understanding. Vital Signs Vital signs: Vital Signs Temperature 97 F L 06/15/21 16:30 Pulse Rate 73 06/15/21 16:30 Respiratory Rate 18 06/15/21 16:30 Blood Pressure 127/78 06/15/21 16:30 Pulse Oximetry 100 06/15/21 16:30 Temperature 97 F L 06/15/21 16:30 Pulse Rate 73 06/15/21 16:30 Respiratory Rate 18 06/15/21 16:30 Blood Pressure 127/78 06/15/21 16:30 Pulse Oximetry 100 06/15/21 16:30 MDM - Chest Pain Lab Data Result diagrams: 06/15/21 16:44 06/15/21 16:44 Labs: Lab Resu
[2021-06-15 20:44] LABS: Troponin I 0.338 ng/mL (0.000-0.034)
--- NOTE | 2021-06-15 20:49 | ADMGEN ---
This patient, Celso Dial, was admitted to IMU Room 214-01. Patient/family oriented to hospital policies and general routines including ID bracelet, bed and alarms, visiting hours, pain management, procedures, bathroom and other care routines, personal items, smoking policy, room service/diet, and visiting hours. Information on how to activate the Rapid Response Team has been discussed. Patient/Family are encouraged to report perceived risks to care and to ask questions if they do not understand what they are told or what they should do.
[2021-06-15] MEDS: TICAGRELOR 90 MG TABLET PO (20:58)
[2021-06-15] MEDS: METOPROLOL TARTRATE 25 MG TABLET PO (20:58)
[2021-06-15] MEDS: ATORVASTATIN 40 MG TABLET 80 MG PO (20:58)
[2021-06-16] VITALS (7 sets, daily range): BP systolic 117–120; BP diastolic 57–61; PULSE 58–66; RESP 12–20; TEMP 36.6–37.2; O2SAT 97–98
[2021-06-16 00:04] LABS: Troponin I 0.332 ng/mL (0.000-0.034)
--- NOTE | 2021-06-16 09:00 | PM.IMHP ---
H&P: HPI History of Present Illness Date/Time: 06/16/21 09:00 Chief Complaint: Chest pain Narrative: This is a 40-year-old man I am seeing this morning after her he was admitted from the emergency room last evening with the recurrence of some chest pain that was creating concern yesterday evening. The patient is known to our practice and was just recently found to have coronary artery disease this past weekend when he presented to the hospital with intermittent ischemic chest pain and evidence of acute coronary syndrome by elevation of troponin. He was brought urgently to the cardiac catheterization lab on Monday last week and found to have high-grade proximal stenosis of the circumflex which was treated successfully using a drug-eluting stent with a good angiographic result and no complications. He did not have any significant coronary disease other than this. He had an uneventful recovery and was discharged from the hospital Monday. He came into they emergency room last evening because he called the office reporting the recurrence of chest pain. He was appropriately directed to the emergency room and then readmitted to the hospital. His ECG upon arrival does not show any significant ST segment abnormalities. His troponin levels are slightly elevated at 0.3 but are flat and reduced from the levels that were seen this past weekend. He is asymptomatic this morning and feels well. He states that the pain he had yesterday was not similar to his previous ischemic pain in the sense that that pain was primarily in the jaw and the mouth with radiation into the shoulders this was a dull mild aching pain in the low substernal region. Because of the recent PCI however he was of course concerned about his condition. He was discharged on appropriate medical regimen of aspirin, Brilinta, lisinopril, metoprolol and atorvastatin. He reports to be compliant with his medication. Reviewed the importance of compliance with his anti-platelet regimen he understands this well. Review of Systems Constitutional: Constitutional: Reports no additional constitutional complaints Eyes: Eyes: Reports no additional eye complaints ENT: Reports system reviewed and no additional complaints, except as documented Cardiovascular: Cardiovascular: Reports as per HPI Respiratory: Respiratory: Reports no additional respiratory complaints Gastrointestinal: Gastrointestinal: Reports no additional gastrointestinal complaints Musculoskeletal: Musculoskeletal: Reports no additional musculoskeletal complaints Integumentary/Breasts: Skin/Breast: Reports system reviewed and no additional complaints, except as docu Neurologic: Reports system reviewed and no additional complaints, except as documented [facility] Past Medical History Medical History Asthma CAD (coronary atherosclerotic disease) Myocardial infarct Tobacco use Surgical History Surgical History (Updated 06/15/21 @ 18:25 by Jose Reyes MD) History of decompression of ulnar nerve (~2013) Rt History of percutaneous coronary intervention Stent left circumflex 06/13/21. Family History Family History Mother Family history of suicide, Onset Age: 59 Family history of bipolar disorder Sibling Patient's sister is in good health Father Acute myocardial infarction, Onset Age: 59 Hypertension Social History Social History Social History: Smoking packs per day: 1 Smoking cigarettes per day: 20.0 Years smoked: 14 Smoking pack-years: 14.00 Smoking status: Current every day smoker Tobacco type: cigarettes Second hand tobacco smoke exposure: Yes Alcohol intake: current Drinks per week: 2 Substance use: never Substance use type: does not use Gender identity (if verbalized by the patient): Male Sexual Orientation (if Verbalized by the Patient): Straight or He
--- NOTE | 2021-06-16 10:05 | PM.DS ---
DS: Admitting Diagnosis Discharge Date 06/16/2021 Admitting Diagnosis chest pain DS: Discharge Diagnosis Discharge Diagnosis (1) Chest pain: Code(s): R07.9 - Chest pain, unspecified Status: Acute DS: Summary Hospital Course Reason for hospitalization: chest pain Hospital Course: this is a 40-year-old man who last weekend last weekend was hospitalized with chest pain evidence of acute coronary syndrome. He was found to have single-vessel coronary artery disease at that time and underwent successful PCI with drug-eluting stent to the proximal circumflex. He did well and was discharged the next day. He is. Some pain yesterday afternoon which was self-limited a a atypical sounding and not similar to his previous ischemia from last week. Because of the symptoms however he was sent to the emergency room for evaluation. His ECG was found to be normal his biomarkers were very slightly elevated but downtrending from the levels that were seen last weekend. He had no other recurrence of symptoms and was comfortable through the night. It was clear the patient had not sustained or experienced an abrupt stent thrombosis and discharged home was recommended. The patient has follow-up already scheduled in our office from the discharge this past weekend. No additional discharge instructions were necessary beyond that. Status at Discharge Functional status at discharge: independent ambulation Overall status at discharge: patient is back to baseline Time Spent with Patient Time attestation: Total time spent providing and/or coordinating discharge services: Time spent: Less than 30 minutes Exam Const: General: comfortable and no acute distress HENMT: Mouth: Yes moist mucous membranes Eyes: Sclera: sclerae normal Pupils: Equal, round and reactive pupils present Neck: Neck: supple and no JVD Resp: Effort & Inspection: normal respiratory effort Auscultation: clear to auscultation bilaterally Cardio: Rate: regular rate Rhythm: regular rhythm Other: No murmur no gallop GI: GI Palp: Yes Soft to palpation Auscultation: normal bowel sounds Skin: General skin exam: normal color Extrem: General: normal to inspection DS: Data Data Completed and Pending Labs on day of discharge: Labs from last 24 hours 06/15/21 06/15/21 06/15/21 22:41 19:53 16:44 WBC RBC Hgb Hct MCV MCH MCHC RDW Plt Count MPV Immature Gran % (Auto) Neut % (Auto) Lymph % (Auto) [place] % (Auto) Eos % (Auto) Baso % (Auto) Lymph # (Auto) [place] # (Auto) Eos # (Auto) Baso # (Auto) Abs Immat Gran (auto) Absolute Neuts (auto) Absolute Nucleated RBC Nucleated RBC % PT INR APTT Sodium 138 Potassium 4.4 Chloride 102 Carbon Dioxide 32 H Anion Gap 4 L BUN 18 Creatinine 1.00 Estim Creat Clear Calc 94 Estimated GFR > 60 Glucose 100 Calcium 9.5 Total Bilirubin 0.4 AST 31 ALT 39 Alkaline Phosphatase 73 Troponin I 0.332 H* 0.338 H* 0.353 H* Total Protein 7.0 Albumin 4.4 Lipase 58 06/15/21 06/15/21 16:44 16:44 WBC 14.5 H RBC 5.29 Hgb 16.4 Hct 49.2 MCV 93.0 MCH 31.0 MCHC 33.3 RDW 12.7 Plt Count 319 MPV 9.1 Immature Gran % (Auto) 0.7 H Neut % (Auto) 66.4 Lymph % (Auto) 24.4 Charlotte % (Auto) 6.1 Eos % (Auto) 1.6 Baso % (Auto) 0.8 Lymph # (Auto) 3.54 H [place] # (Auto) 0.9 H Eos # (Auto) 0.2 Baso # (Auto) 0.1 Abs Immat Gran (auto) 0.10 H Absolute Neuts (auto) 9.6 H Absolute Nucleated RBC 0.0 Nucleated RBC % 0.0 PT 11.7 INR 0.9 APTT 25.6 Sodium Potassium Chloride Carbon Dioxide Anion Gap BUN Creatinine Estim Creat Clear Calc Estimated GFR Glucose Calcium Total Bilirubin AST ALT Alkaline Phosphatase Troponin I Total Protein Albumin Lipase Discharge Plan Discharge Attending physic
== END 2021-06-16 10:45 | disposition home or self-care (01) ==
LOC: ANHED 17:02 → ANHIMU 18:28
PROVIDERS: Admitting Provider Internal Medicine Cardiovascular Disease; Emergency Provider Emergency Medicine; PCP Family Medicine; Visit Provider Specialist
DX: R07.9 Chest pain, unspecified (principal); I25.10 Atherosclerotic heart disease of native coronary artery without angina pectoris; I25.2 Old myocardial infarction; J45.909 Unspecified asthma, uncomplicated; F17.210 Nicotine dependence, cigarettes, uncomplicated; Z28.21 Immunization not carried out because of patient refusal; Z79.82 Long term (current) use of aspirin
CPT/HCPCS: 36415; 71046; 80053; 83690; 84484; 85025; 85610; 85730; 93005; 99285; A9270; G0378

== ENCOUNTER 2021-07-15 07:15 | Outpatient (RCR) | payer OTHER, SELFPAY ==
[2021-06-22 08:59] VITALS: PULSE 65
== END 2021-07-21 09:13 | disposition home or self-care (01) ==
LOC: ANHCPREHAB 07:15
PROVIDERS: PCP Family Medicine; Visit Provider Internal Medicine Cardiovascular Disease
DX: Z95.5 Presence of coronary angioplasty implant and graft (principal)
CPT/HCPCS: 93798

== ENCOUNTER 2021-08-12 14:14 | Outpatient (CLI) | payer OTHER, SELFPAY ==
--- NOTE | ~2021-08-12 | XR_ITS ---
EXAMINATION: XR knee LT 3V DATE: 08/12/2021 14:47 INDICATION: Left knee pain. Effusion. TECHNIQUE: 3 views of left knee were obtained. COMPARISON: None. FINDINGS: Bone alignment is normal. No fracture. There is mild osteoarthritis of lateral and patellof emoral compartments characterized by tiny osteophytes. No joint space narrowing. No knee joint effusi on. IMPRESSION: 1. Mild left knee osteoarthritis. Reviewed, dictated and finalized at location B.
== END 2021-08-12 14:15 | disposition home or self-care (01) ==
PROVIDERS: PCP Family Medicine; Visit Provider Family Medicine
DX: M25.462 Effusion, left knee (principal); M17.12 Unilateral primary osteoarthritis, left knee
CPT/HCPCS: 73562

== ENCOUNTER 2021-10-23 10:10 | Emergency (ER) | payer OTHER, SELFPAY ==
[2021-10-23 10:33] VITALS: BP 140/77; PULSE 99; RESP 16; TEMP 36.9; O2SAT 99
--- NOTE | 2021-10-23 11:16 | ED.URI ---
HPI - URI/Sore Throat General Chief Complaint: Upper Respiratory Infection Stated Complaint: Sinus,Congestion History of Present Illness HPI Narrative: Patient is a 41-year-old male who presents to the [facility] via POV for evaluation of upper respiratory symptoms that have been present for 3 days. Additionally, he reports nasal congestion and chest congestion. No relief with Mucinex. Nothing improves symptoms. Congestion worsens when outside Pt reports he is usually prescribed prednisone by his PCP, Dr. Wing when he has sinus infections . Related Data Allergies Allergy/AdvReac Type Severity Reaction Status Date / Time No Known Allergies Allergy Verified 10/23/21 10:39 Review of Systems Review of Systems: Denies history of COPD, bronchitis, and pneumonia. Denies current/past tobacco use. Pertinent negatives: fever, sweats, chills, change in appetite, fatigue, skin color changes, headache, nasal discharge, dizziness, lymphadenopathy, sinus problems, ear pain/drainage, chest pain, heart murmurs, heart palpitations, shortness of breath, wheezing, cyanosis, hemoptysis, hoarseness, orthopnea, pleuritic pain, nausea, vomiting, diarrhea, and myalgias. [facility] Past Medical History Medical History Asthma CAD (coronary atherosclerotic disease) Myocardial infarct Tobacco use Surgical History Surgical History History of decompression of ulnar nerve (~2013) Rt History of percutaneous coronary intervention Stent left circumflex 06/13/21. Family History Family History Mother Family history of suicide, Onset Age: 59 Family history of bipolar disorder Sibling Patient's sister is in good health Father Acute myocardial infarction, Onset Age: 59 Hypertension Social History Social History Social History: Smoking packs per day: 0.25 Smoking cigarettes per day: 5.0 Years smoked: 20 Smoking pack-years: 5.00 Smoking status: Current every day smoker Tobacco type: cigarettes Second hand tobacco smoke exposure: Yes Alcohol intake: current Drinks per week: 3 Substance use: never Substance use type: does not use Gender identity (if verbalized by the patient): Male Sexual Orientation (if Verbalized by the Patient): Straight or Heterosexual Spiritual care concerns: No Comments I have reviewed and agree with the patient's past medical, surgical, social, and family hx as documented by the RN. There is no relevant family history pertinent to the presenting complaint. Exam Narrative: GENERAL: Well-appearing, well-nourished, and in no acute distress. HEAD: Normocephalic, atraumatic. No sinus tenderness or facial swelling appreciated. EYES: PERRLA and EOMI. No evidence of erythema, swelling, or drainage. ENT: Bilateral external ears and ear canals normal. Bilateral TMs are normal.No TM perforation. Nares clear, no rhinorrhea or epistaxis. Bilateral turbinates are moderately edematous. Bilateral turbinates without erythema Mucous membranes moist and pink. Uvula is midline without erythema and swelling. No evidence of petechial rash, cobblestoning, lesions, ulcers, erythema, swelling, exudates, peritonsillar abscess, tenting, or drooling. Breath odor and voice normal. NECK: Supple. No Lymphadenopathy or nuchal rigidity appreciated. CHEST: Bilateral lung hirsch are clear to auscultation. No respiratory distress. No evidence of cough or pleuritic cp upon examination. HEART: Regular rate and rhythm. No murmur, gallop, or rub heard. EXTREMITIES: Normal range of motion. No edema. SKIN: Warm, dry, no rash. NEURO: No focal deficits. Alert and oriented x3. Course Course Level of Care: Express Care Visit Vital Signs Vital signs: Vital Signs Temperature 98.5 F 10/23/21 10:33 Pulse Rate 99 10/23/
== END 2021-10-23 11:24 | disposition home or self-care (01) ==
PROVIDERS: Emergency Provider Nurse Practitioner Family; PCP Family Medicine
DX: J06.9 Acute upper respiratory infection, unspecified (principal); F17.210 Nicotine dependence, cigarettes, uncomplicated; J45.909 Unspecified asthma, uncomplicated; I25.2 Old myocardial infarction; I25.10 Atherosclerotic heart disease of native coronary artery without angina pectoris
CPT/HCPCS: 99213; G0463

== ENCOUNTER 2021-11-01 15:00 | Outpatient (CLI) | payer OTHER, SELFPAY ==
--- NOTE | ~2021-11-01 | XR_ITS ---
EXAMINATION: XR chest 2V 11/01/2021 15:18 INDICATION: Cough PROCEDURE: PA and lateral views of the chest COMPARISON: 06/15/2021 FINDINGS: The lungs are clear. The cardiomediastinal silhouette is within normal limits. There are no pleural effusions. There is no pneumothorax suspected. IMPRESSION: 1: NO ACUTE CARDIOPULMONARY DISEASE. Reviewed, dictated and finalized at location A.
== END 2021-11-01 15:01 | disposition home or self-care (01) ==
PROVIDERS: PCP Family Medicine; Visit Provider Nurse Practitioner Gerontology
DX: R05.9 Cough, unspecified (principal)
CPT/HCPCS: 71046

== ENCOUNTER 2022-04-08 11:04 | Outpatient (CLI) | payer OTHER, SELFPAY ==
--- NOTE | ~2022-04-08 | XR_ITS ---
Clinical Indication: Cough An lateral views of the chest: Comparison: 11/01/2021 Findings: The lungs are clear, without evidence of focal consolidation or pleural effusion. Cardiome diastinal silhouette is within normal limits. Bones and soft tissues are unremarkable. Impression: Normal chest. 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
== END 2022-04-08 11:05 | disposition home or self-care (01) ==
PROVIDERS: PCP Family Medicine; Visit Provider Family Medicine
DX: R05.9 Cough, unspecified (principal)
CPT/HCPCS: 71046

== ENCOUNTER → 2022-04-28 10:24 | Outpatient (CLI) | payer OTHER, SELFPAY ==
--- NOTE | ~2022-04-28 | CT_ITS ---
EXAMINATION: CT diagnostic chest wo con DATE: 04/28/2022 10:38 INDICATION: Cough. Asthma. TECHNIQUE: Computed tomography (CT) of the chest was performed without intravenous contrast. Automate d exposure control and iterative reconstruction technique were employed. Exam dose: 267.97 mGy-cm to saundra exam DLP. COMPARISON: 04/08/2022 PA and lateral chest FINDINGS: No pulmonary infiltrate or consolidation or suspicious pulmonary mass lesion is detected. Normal heart size. Coronary artery calcification. No thoracic aortic aneurysm. No hilar or mediastina l mass lesion or lymphadenopathy. No pericardial or pleural effusion. Small sliding hiatal hernia. Normal morphology of the adrenal glands. IMPRESSION: Coronary artery atherosclerosis Small sliding hiatal hernia Reviewed, dictated and finalized at Location A. Reviewed, dictated and finalized at location L. 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
== END ==
PROVIDERS: PCP Family Medicine; Visit Provider Nurse Practitioner Gerontology
DX: R05.9 Cough, unspecified (principal); J45.901 Unspecified asthma with (acute) exacerbation; K44.9 Diaphragmatic hernia without obstruction or gangrene; I25.10 Atherosclerotic heart disease of native coronary artery without angina pectoris
CPT/HCPCS: 71250

== ENCOUNTER 2022-05-19 08:02 | Outpatient (CLI) | payer OTHER, SELFPAY ==
--- NOTE | 2022-05-20 07:46 | WPDPFTINT ---
PFT Procedure Performed PFT Procedure Performed Spirometry with Pre/Post Bronchodilator Plethysmography (Lung Vol) Diffusing Cap (DLCO) Flow Vol Loop PFT Interpretation Lung volumes were measured with the body plethysmography method. Lung volumes are unremarkable. Spirometry showed normal expiratory flow rates and a normal FEV1 to FVC ratio 79%. No post bronchodilator study was carried out. Lung diffusion capacity is mildly reduced at 69% predicted. The flow-volume loop is unremarkable. Impression: Spirometry and lung volumes within normal range. Mild reduction in lung diffusion capacity.
== END 2022-05-19 08:03 | disposition home or self-care (01) ==
LOC: ANHPFT 08:03
PROVIDERS: PCP Family Medicine; Visit Provider Nurse Practitioner Gerontology
DX: R06.02 Shortness of breath (principal)
CPT/HCPCS: 94375; 94726; 94729

== ENCOUNTER 2022-07-06 17:15 | Emergency (ER) | payer OTHER, SELFPAY ==
[2022-07-06 17:25] VITALS: BP 135/67; PULSE 70; RESP 18; TEMP 36.4; O2SAT 99
[2022-07-06 17:27] VITALS: BP 135/67; PULSE 70; RESP 18; TEMP 36.4; O2SAT 99
--- NOTE | 2022-07-06 17:29 | ED.URI ---
HPI - URI/Sore Throat General Chief Complaint: Upper Respiratory Infection Stated Complaint: Sore Throat,Congestion Source: patient and RN notes reviewed Mode of arrival: ambulatory Limitations: no limitations History of Present Illness HPI Narrative: 41 y/o male presented for c/o sore throat worsening since yesterday. Endorses sinus pressure and congestion for over one week. Taking Mucinex for this. Cauterized nosebleed 5 days ago, saw ENT yesterday and was told it looked stable. States he had pneumonia in Apr and has had sinus congestion since. Denies sob, wheezing, n/v/d/f/c. PMH includes CAD, NSTEMI, and recurrent epistaxis. Compliant with medications. Smokes 1ppd. MD elicited complaint: cough Related Data Home Medications Medication Instructions Recorded Confirmed lisinopril 2.5 mg tablet 2.5 mg PO DAILY 06/20/22 07/06/22 Allergies Allergy/AdvReac Type Severity Reaction Status Date / Time No Known Allergies Allergy Verified 07/06/22 17:24 Review of Systems Review of Systems: CONSTITUTIONAL: Denies malaise, chills, sweats, fever EYES: Denies visual changes, redness, or discharge ENT: Reports rhinorrhea, congestion, sinus pain, sore throat CARDIOVASCULAR: Denies chest pain, palpitations, edema RESPIRATORY: Denies dyspnea GASTROINTESTINAL: Denies abdominal pain, nausea, vomiting, diarrhea SKIN: Denies rash or itching MUSCULOSKELETAL: Denies myalgia NEUROLOGIC: Denies headache PMFSH Past Medical History Medical History Asthma CAD (coronary atherosclerotic disease) Myocardial infarct Recurrent sinusitis Tobacco use Surgical History Surgical History History of decompression of ulnar nerve (~2013) Rt History of percutaneous coronary intervention Stent left circumflex 06/13/21. Family History Family History Mother Family history of suicide, Onset Age: 59 Family history of bipolar disorder Sibling Patient's sister is in good health Father Acute myocardial infarction, Onset Age: 59 Hypertension Social History Social History Social History: Smoking packs per day: 1 Smoking cigarettes per day: 20.0 Years smoked: 20 Smoking pack-years: 20.00 Smoking status: Current every day smoker Tobacco type: cigarettes Second hand tobacco smoke exposure: Yes Alcohol intake: current Drinks per week: 3 Substance use: never Substance use type: does not use Lack of Transportation: No Lack of Food: Never True Current Housing: I Have Housing Concerned About Future Housing: No Difficulty Paying Gas/Electric Bills: No Difficulty Paying for Meds: No Currently Unemployed: No Education: High School Diploma/GED Difficulty w/ Childcare or Family Care: No Living arrangements: with family Occupation/Education: occupation Gender identity (if verbalized by the patient): Male Sexual Orientation (if Verbalized by the Patient): Straight or Heterosexual Spiritual care concerns: No Exam Narrative: GENERAL: well-appearing EYES: PERRLA, conjunctivae clear ENT: Mucous membranes moist. TMs pearly mancera with dull light reflex bilaterally; no tragal tenderness. Oropharynx mildly erythematous without lesions or exudate, no drooling, no hoarseness, no trismus, uvula midline. No tripod positioning, muffled voice, soft palate or pharyngeal wall bulging NECK: Supple. No lymphadenopathy CHEST: Clear to auscultation, breath sounds equal. No wheezing, rhonchi, rales, or stridor. No respiratory distress, speaks in full sentences. HEART: Regular rate and rhythm. No murmur heard. SKIN: Warm, dry, no rash. NEURO: Alert and oriented x3. PSYCH: Normal mood and affect Course Course Emergency Course: Patient is aware of diagnosis, understands and agrees to treatment plan. Anticipatory guidance given. Guerline
== END 2022-07-06 17:46 | disposition home or self-care (01) ==
PROVIDERS: Emergency Provider Nurse Practitioner Family; PCP Family Medicine
DX: J02.9 Acute pharyngitis, unspecified (principal); I25.10 Atherosclerotic heart disease of native coronary artery without angina pectoris; I25.2 Old myocardial infarction; J45.909 Unspecified asthma, uncomplicated; F17.210 Nicotine dependence, cigarettes, uncomplicated
CPT/HCPCS: 87081; 87880; 99213; G0463

== ENCOUNTER 2022-10-06 17:28 | Emergency (ER) | payer OTHER, SELFPAY ==
--- NOTE | ~2022-10-06 | XR_ITS ---
EXAM: XR knee LT 3V DATE: 10/06/2022 19:48 HISTORY: laceration . COMPARISON: 08/12/2021. FINDINGS: Normal mineralization. No fracture or dislocation. No lytic or blastic lesion. Joint space s are maintained. No erosion or periosteal change. Soft tissues within normal limits. IMPRESSION: No acute osseous finding in the left knee. Reviewed, dictated and finalized at location K.
[2022-10-06 17:35] VITALS: BP 145/78; PULSE 100; RESP 18; O2SAT 98
[2022-10-06] MEDS: TETANUS,DIPHTHERIA,AC PERTUSSIS ADULT (0.5 ML) BOOSTRIX IM (19:46)
--- NOTE | 2022-10-06 20:38 | ED.WOUNDLAC ---
HPI - Wound/Laceration General Chief Complaint: Wound/Laceration Stated Complaint: cut leg with chainsaw Time Seen by Provider: 10/06/22 18:48 History of Present Illness HPI narrative: 42-year-old male here for evaluation of laceration sustained to his left leg from a chainsaw. Patient states that he lost control of the object and it sliced the lateral aspect near his knee. He denies any numbness, tingling, weakness in the limb. He is unsure of his last tetanus shot. He has been able to ambulate. No further injury sustained in the accident. Related Data Home Medications Medication Instructions Recorded Confirmed lisinopril 2.5 mg tablet 2.5 mg PO DAILY 06/20/22 07/12/22 Allergies Allergy/AdvReac Type Severity Reaction Status Date / Time No Known Allergies Allergy Verified 07/08/22 16:37 Review of Systems Review of Systems: Gen.: Denies fevers or chills Eyes: Denies eye pain or visual change ENT: Denies congestion Respiratory: Denies shortness of breath or cough CV: Denies chest pain or palpitations GI: Reports abdominal pain nausea, emesis or diarrhea denies burning, urgency, frequency or hematuria Musculoskeletal: Denies back pain or muscle pain Neuro: Denies numbness, tingling, weakness or focal weakness Skin: Reports laceration 10 point review of systems negative, other than as per history of present illness, past medical history and other positives and review of systems [facility] Past Medical History Medical History Asthma CAD (coronary atherosclerotic disease) Myocardial infarct Recurrent sinusitis Tobacco use Surgical History Surgical History History of decompression of ulnar nerve (~2013) Rt History of percutaneous coronary intervention Stent left circumflex 06/13/21. Family History Family History Mother Family history of suicide, Onset Age: 59 Family history of bipolar disorder Sibling Patient's sister is in good health Father Acute myocardial infarction, Onset Age: 59 Hypertension Social History Social History Social History: Smoking packs per day: 1 Smoking cigarettes per day: 20.0 Years smoked: 20 Smoking pack-years: 20.00 Smoking status: Current every day smoker Tobacco type: cigarettes Second hand tobacco smoke exposure: Yes Alcohol intake: current Drinks per week: 3 Substance use: never Substance use type: does not use Lack of Transportation: No Lack of Food: Never True Current Housing: I Have Housing Concerned About Future Housing: No Difficulty Paying Gas/Electric Bills: No Difficulty Paying for Meds: No Currently Unemployed: No Education: High School Diploma/GED Difficulty w/ Childcare or Family Care: No Living arrangements: with family Occupation/Education: occupation Gender identity (if verbalized by the patient): Male Sexual Orientation (if Verbalized by the Patient): Straight or Heterosexual Spiritual care concerns: No Exam Narrative: APPEARANCE: Well appearing, no pain in distress, well-nourished. Head: Normocephalic and atraumatic. EYES: PERRLA/EOMI, conjunctivae clear NOSE: No nasal drainage EARS: External ear normal in appearance THROAT: Oropharynx is clear. Mucous membranes are moist. NECK: Supple. No adenopathy, no masses. RESPIRATORY: Airway patent, respirations nonlabored. Clear to auscultation bilaterally, no rales, rhonchi, wheezing. CARDIOVASCULAR: 2+dp/pt pulses bilaterally. Regular rate and rhythm without murmurs, rubs, or gallops. ABDOMINAL: Normoactive bowel sounds. Soft, nontender, nondistended. No rebound tenderness or guarding. MUSCULOSKELETAL: FROM in left leg. Extremities are warm and well-perfused. Moves all extremities well. No edema. NEURO: Normal speech. No focal neurologic deficits. SKIN:there is
[2022-10-06] MEDS: LIDO 1%/EPINEPHRINE 1:100,000 20 ML VIAL 5 ML INFILTRATE (20:43)
== END 2022-10-06 21:04 | disposition home or self-care (01) ==
PROVIDERS: Emergency Provider Physician Assistant; PCP Family Medicine
DX: S81.012A Laceration without foreign body, left knee, initial encounter (principal); Z23 Encounter for immunization; Z79.82 Long term (current) use of aspirin; W29.3XXA Contact with powered garden and outdoor hand tools and machinery, initial encounter
CPT/HCPCS: 12002; 73562; 90471; 90715; 99283; J7040

== ENCOUNTER 2022-11-02 07:11 | Outpatient (CLI) | payer OTHER, SELFPAY ==
--- NOTE | ~2022-11-02 | CT_ITS ---
EXAMINATION: CT sinus wo con DATE: 11/02/2022 07:37 INDICATION: Epistaxis TECHNIQUE: Computed tomography (CT) of the paranasal sinuses was performed without intravenous contra st. The dose-length product (DLP) was 286.97 mGy-cm. Iterative reconstruction was used. COMPARISON: None FINDINGS: There is normal development and pneumatization of the paranasal sinuses. There is mild muco ryann thickening of the ethmoidal air cells. Mild mucosal thickening is seen anteriorly and laterally i n the left maxillary sinus. There is a small focus of mucosal thickening inferomedially in the left m axillary sinus. There are small polyps or mucous retention cysts measuring up to 4 mm inferolaterally in the right maxillary sinus. The frontal and sphenoid sinuses are clear. The mastoid air cells are well aerated. The bilateral ostiomeatal complexes are patent. Visualized soft tissues are unremarkabl e. IMPRESSION: 1. Mild sinus disease as above. Reviewed, dictated and finalized at location B.
== END 2022-11-02 07:12 | disposition home or self-care (01) ==
PROVIDERS: PCP Family Medicine; Visit Provider Otolaryngology
DX: R04.0 Epistaxis (principal); J32.9 Chronic sinusitis, unspecified
CPT/HCPCS: 70486

== ENCOUNTER 2022-12-23 07:58 | Outpatient (CLI) | payer OTHER, SELFPAY ==
--- NOTE | 2022-12-23 08:00 | ECG_ITS ---
Measurements Intervals [place] Rate: 69 P: 27 MS: 186 QRS: 48 QRSD: 87 T: 15 QT: 381 QTc: 410 Interpretive Statements SINUS RHYTHM BASELINE ARTIFACT- I, III, AVR, AVL, AVF, V1-V6 NORMAL ECG COMPARED TO ECG 06/15/2021 16:31:28 NO SIGNIFICANT CHANGES Electronically Signed On 12-23-2022 8:31:09 CDT by Syed Avalos D.O.
== END 2022-12-23 07:59 | disposition home or self-care (01) ==
LOC: ANHSURGERY 08:02
PROVIDERS: PCP Family Medicine; Visit Provider Otolaryngology
DX: F17.200 Nicotine dependence, unspecified, uncomplicated (principal)
CPT/HCPCS: 93005

== ENCOUNTER 2022-12-30 03:25 | Day surgery (SDC) | payer OTHER, SELFPAY ==
--- NOTE | 2022-12-20 15:11 | SUR.PREOP ---
Report to the Outpatient Waiting Room, entrance under the green pavilion located off [facility], at time 0800 on date 12/30/22. Planned Procedure Time: 1000. Time changes happen often and if your time is changed the preop area will call you the afternoon before. - You and your visitor will be asked to self-screen and do not enter if you have any COVID symptoms. - A mask is optional within the hospital at this time. Patients may have clear liquids (water, carbonated beverages, clear teas, apple juice) until 3 hours prior to surgery with a maximum of 20 ounces. - NO CLEAR LIQUIDS AFTER 7AM - No food from midnight until time of surgery - Infants may have breast milk until 4 hours before surgery, formula 6 hours prior to surgery. - Children will be allowed to drink immediately following surgery. If applicable, please bring a bottle or sippy cup to assist with drinking. Juice, water, soda, and popsicles are readily available. For infants on formula, please bring formula the day of surgery. Pacifiers are allowed. Take the following medications with a SIP of water the morning of surgery: METOPROLOL BRING ALBUTEROL INHALER WITH YOU_ DO NOT STOP ANY OF YOUR OTHER PRESCRIPTION MEDICATIONS PRIOR TO SURGERY ?EXCEPT THE FOLLOWING Medications to discontinue per physician ASPIRIN Date to take last dose INSTRUCTED TO STOP TAKING ON 12/25/22 PER ROTARY VENEER MACHINE OPERATOR & DR DAVIS Please no make-up, nail st helenian, hairspray, perfume, deodorant, or body powder the day of surgery. No jewelry (including any body piercings) or valuables the day of surgery, leave them at home. Please take a shower or bath the night before, or the morning of, surgery with an antibacterial soap. Wear comfortable, loose fitting clothing. Children are encouraged to wear pajamas. - Jewelry must be removed prior to entering the operating room. Rings and piercings that are not removed may be cut off. - The hospital will not accept responsibility for valuables. - Please leave all valuables, including medications, at home the day of surgery. If you are going home after surgery, a licensed school bus driver/teacher assistant must drive you home. - NO public transportation without another adult if you receive anesthesia. - We recommend that an adult stay with you for 24 hours following discharge. - We also recommend that you do not drive, make important decision, drink alcoholic beverages, or take any drugs that were not prescribed by your health care provider for at least 24 hours after your discharge time. For Pediatric surgeries, we recommend two adults accompany the child home. Follow any additional instructions given to you from your surgeon. If you or anyone in your household have experienced Covid symptoms in the past week, please notify your surgeon or the nurse liaison at the phone number below for possible testing. Telephone instructions given to JEREMIE CALI and asked if any additional questions and then verbalized understanding. Patient advised to call surgeon office or pre surgery nurse liaison [phone] if any additional questions.
[2022-12-20 15:26] VITALS: BMI 26.3
--- NOTE | 2022-12-29 10:24 | PM.IMHP ---
H&P: HPI History of Present Illness Date/Time: 12/29/22 10:24 Chief Complaint: nasal congestion nasal obstruction septal deviation turbinate hypertrophy chronic sinusitis recurrent acute sinusitis Narrative: planned procedure Review of Systems Review of Systems: All systems reviewed & are unremarkable except as noted in HPI and below PMFSH Past Medical History Medical History Abscess of abdominal wall Acute right-sided low back pain with right-sided sciatica Asthma CAD (coronary atherosclerotic disease) Elevated BP without diagnosis of hypertension Juvenile idiopathic scoliosis of thoracic region Lipid screening Myocardial infarct Recurrent sinusitis Sacroiliitis Tobacco abuse Tobacco use Surgical History Surgical History History of decompression of ulnar nerve (~2013) Rt History of percutaneous coronary intervention Stent left circumflex 06/13/21. Family History Family History Mother Family history of suicide, Onset Age: 59 Family history of bipolar disorder Sibling Patient's sister is in good health Father Acute myocardial infarction, Onset Age: 59 Hypertension Social History Social History Social History: Smoking packs per day: 1 Smoking cigarettes per day: 20.0 Years smoked: 20 Smoking pack-years: 20.00 Smoking status: Current every day smoker Tobacco type: cigarettes Second hand tobacco smoke exposure: Yes Alcohol intake: current Drinks per week: 3 Substance use: never Substance use type: does not use Lack of Transportation: No Lack of Food: Never True Current Housing: I Have Housing Concerned About Future Housing: No Difficulty Paying Gas/Electric Bills: No Difficulty Paying for Meds: No Currently Unemployed: No Education: High School Diploma/GED Difficulty w/ Childcare or Family Care: No Living arrangements: with family Occupation/Education: occupation Gender identity (if verbalized by the patient): Male Sexual Orientation (if Verbalized by the Patient): Straight or Heterosexual Spiritual care concerns: No Meds Home Medications and Allergies Home Medications Medication Instructions Recorded Confirmed Type aspirin 81 mg tablet,delayed 81 mg PO QAM 30 days #30 tabs 06/14/21 12/20/22 Rx release atorvastatin 40 mg tablet 80 mg PO HS 30 days #60 tabs 02/21/22 08/29/23 Rx nitroglycerin 0.4 mg sublingual 0.4 mg sublingual Q5MIN PRN Chest 06/16/21 12/20/22 Rx tablet (Nitrostat) Pain #30 tabs albuterol sulfate 90 mcg/actuation 2 inh inhalation Q4H PRN shortness 04/07/22 12/20/22 Rx aerosol inhaler of breath or wheezing #8.5 grams albuterol sulfate 2.5 mg/3 mL 2.5 mg (3 mL) inhalation Q4-6H PRN 04/11/22 12/20/22 Rx (0.083 %) solution for nebulization asthma #90 mL budesonide-formoterol HFA 160 1 puff inhalation Q12H 12/20/22 12/20/22 History mcg-4.5 mcg/actuation aerosol inhaler (Symbicort) metoprolol tartrate 25 mg tablet 25 mg PO BID 12/20/22 12/20/22 History Allergies Allergy/AdvReac Type Severity Reaction Status Date / Time No Known Allergies Allergy Verified 12/20/22 15:24 Exam Narrative: deviated septum be turbinates chronic appearing sinuses Assessment and Plan Assessment and plan (1) Acute sinusitis: Code(s): J01.90 - Acute sinusitis, unspecified Status: Acute Assessment and Plan: plan OR endoscopic assisted septoplasty turbinate reduction bilaterally with outfracture. Image guided bilateral maxillary antrostomies anterior ethmoidectomies. Risks were discussed including bleeding infection damage to surrounding structures need for further procedures CSF leak brain brain damage change in vision total blindness septal perforation. We also discussed the risks that opening u
[2022-12-30] VITALS (8 sets, daily range): BP systolic 108–173; BP diastolic 58–98; PULSE 64–85; RESP 12–20; TEMP 36.1–36.4; O2SAT 96–100
--- NOTE | 2022-12-30 07:15 | WPDHPUPDATE1 ---
History and Physical Update Update Date/Time: 12/30/22 07:15 History and Physical has been reviewed, including an updated exam of the patient. There are NO changes in the patient's condition. Risks, benefits, and alternatives have been discussed and questions answered. Patient agrees to proceed with procedure.
[2022-12-30] MEDS: ACETAMINOPHEN 500 MG TABLET 1000 MG PO (08:24)
--- NOTE | 2022-12-30 09:27 | WPDANESEPPF ---
Anes - Initial Pre Proc Eval Procedure: Operation Date: 12/30/22 09:30 Proposed Procedures p Septoplasty, - Rafael Schneider MD s Image Guided Bilateral Inferior Turbinectomy with Outfracture, Bilateral Maxillary Antrostomies Without Tissue Removal, Bilateral Anterior Ethmoidectomy - Rafael Schneider MD Date/Time: 12/30/22 09:27 Surgeon: Rafael Schneider MD Pre Op Diagnosis: chronic sinusitis Patient Data Age: 42 Gender: M Height: 1.83 m Weight: 87.6 kg Last Vital Signs Temp 36.4 C 12/30/22 08:29 Pulse 64 12/30/22 08:29 Resp 16 12/30/22 08:29 BP 129/77 12/30/22 08:29 Pulse Ox 100 12/30/22 08:29 O2 Del Method Room Air 12/30/22 08:29 Allergies Allergy/AdvReac Type Severity Reaction Status Date / Time No Known Allergies Allergy Verified 12/30/22 08:22 Home Medications Medication Instructions Recorded Confirmed Type aspirin 81 mg tablet,delayed 81 mg PO QAM 30 days #30 tabs 06/14/21 12/20/22 Rx release atorvastatin 40 mg tablet 80 mg PO HS 30 days #60 tabs 06/14/21 12/20/22 Rx nitroglycerin 0.4 mg sublingual 0.4 mg sublingual Q5MIN PRN Chest 06/16/21 12/20/22 Rx tablet (Nitrostat) Pain #30 tabs albuterol sulfate 90 mcg/actuation 2 inh inhalation Q4H PRN shortness 04/07/22 12/20/22 Rx aerosol inhaler of breath or wheezing #8.5 grams albuterol sulfate 2.5 mg/3 mL 2.5 mg (3 mL) inhalation Q4-6H PRN 04/11/22 12/20/22 Rx (0.083 %) solution for nebulization asthma #90 mL budesonide-formoterol HFA 160 1 puff inhalation Q12H 12/20/22 12/20/22 History mcg-4.5 mcg/actuation aerosol inhaler (Symbicort) metoprolol tartrate 25 mg tablet 25 mg PO BID 12/20/22 12/20/22 History Patient hx anesthesia problems: none Family hx anesthesia problems: none Results Review: All pre-operative results and documents have been reviewed as part of the pre-operative evaluation. H/H noted to be high. Will recheck proceed if Hct less than 55. PMF Past Medical History Medical History Abscess of abdominal wall Acute right-sided low back pain with right-sided sciatica Asthma CAD (coronary atherosclerotic disease) Elevated BP without diagnosis of hypertension Juvenile idiopathic scoliosis of thoracic region Lipid screening Myocardial infarct Recurrent sinusitis Sacroiliitis Tobacco abuse Tobacco use Surgical History Surgical History History of decompression of ulnar nerve (~2013) Rt History of percutaneous coronary intervention Stent left circumflex 06/13/21. Family History Family History Mother Family history of suicide, Onset Age: 59 Family history of bipolar disorder Sibling Patient's sister is in good health Father Acute myocardial infarction, Onset Age: 59 Hypertension Social History Social History Social History: Smoking packs per day: 1 Smoking cigarettes per day: 20.0 Years smoked: 20 Smoking pack-years: 20.00 Smoking status: Current every day smoker Tobacco type: cigarettes Second hand tobacco smoke exposure: Yes Alcohol intake: current Drinks per week: 3 Substance use: never Substance use type: does not use Lack of Transportation: No Lack of Food: Never True Current Housing: I Have Housing Concerned About Future Housing: No Difficulty Paying Gas/Electric Bills: No Difficulty Paying for Meds: No Currently Unemployed: No Education: High School Diploma/GED Difficulty w/ Childcare or Family Care: No Living arrangements: with family Occupation/Education: occupation Gender identity (if verbalized by the patient): Male Sexual Orientation (if Verbalized by the Patient): Straight or Heterosexual Spiritual care concerns: No Anes - Eval Final PreProcedure Day of Procedure 12/30/22 09:27 Patient weight: overweight Heart: regular rat
[2022-12-30 09:42] LABS: Hematocrit 48.1 % (42.0-52.0); Hemoglobin 16.2 g/dL (14.0-18.0)
[2022-12-30] MEDS: ceFAZolin 2 GM/D5W 50 ML 2 GM/50 ML BAG IVPB (10:21)
[2022-12-30] MEDS: LIDO 1%/EPINEPHRINE 1:100,000 20 ML VIAL 10 ML INFILTRATE (10:55)
[2022-12-30] MEDS: OXYMETAZOLINE HCL 0.05% NAS 15 ML BTL (*BKC) 1 SPRAY NASAL (10:58)
[2022-12-30] MEDS: LACTATED RINGERS 1,000 ML 30 ML IV CONT ×2 (13:19→13:20)
--- NOTE | 2022-12-30 13:37 | P.OP_ITS ---
Procedure Note - Detailed Date of Procedure 12/30/22 Pre-op Diagnosis chronic sinusitis Post-op Diagnosis Same Procedure Performed Endoscopic assisted septoplasty turbinate reduction bilaterally with outfracture image guided endoscopic maxillary antrostomies and anterior ethmoidectomies Surgeon Rafael Schneider MD Anesthesia General Indications See above Findings Severely deviated leftward septum straight small perforations left side none on the right turbinates well reduced diseased mucosa in the maxillary sinuses the ethmoids looked okay again open for recurrent sinusitis. Description of Procedure Patient identified consent verified in the preoperative holding area. Patient was brought to the operating room. Time-out performed. General anesthesia induced endotracheal tube secured airway. Patient prepped draped position procedure confirmed. Second time-out performed. Image guidance initiated confirmed. Afrin-soaked pledgets placed for 5 minutes then removed. 0 degree endoscope utilized 13 cc 1% lidocaine 1 100,000 parts epinephrine injected the bilateral nasal septum and inferior turbinates Navneet incision made left-sided left nasal septal flap elevated 7 Kiswahili suction. Right nasal septal flap elevated after the septum was crossed over with an osteotome. Deviated septum removed with osteotome Clay Arora forceps Suzy forceps. Navneet incision closed interrupted 5 0 fast gut sutures. Quilting stitch placed as well also holding the turbinates medial middle turbinates medially. Inferior turbinates reduced in the submucosal plane using microdebrider with turbinate blade. They were then outfractured. Maxillary antrostomies performed under image guidance with backbiter straight through cut and microdebrider. No damage to orbit. Anterior ethmoidectomy performed under image guidance Kerrison and microdebrider no damage to orbit no damage to skull base. Bilateral nasal passages and copiously irrigated with sterile normal saline. Nova pack placed bilaterally. Again the turbinates and septum were quilted. Bryant splints were also placed bilaterally. Bryant splints were sutured anteriorly using a 3-0 mattress nylon suture. Total blood loss probably 100 cc. I performed all dictated portions of procedure. No immediate complications. Patient tolerated the procedure well. All the heads of the inferior turbinates that were entered were cauterized with Bovie suction electrocautery setting of 10. Care patient given anesthesiology I performed all dictated portions of procedure no complications patient taken to PACU. Estimated Blood Loss 100 Drains No Packing Yes (novapak) Pathology None sent Complications No immediate complications Condition Stable Disposition PACU [facility] Billing Surgery - Charge Forward: Surgery Billing
[2022-12-30] MEDS: fentaNYL CITRATE INJ (*CRX) 100 MCG/2 ML VIAL 25 MCG IV PUSH ×2 (13:50→13:59)
[2022-12-30] MEDS: oxyCODONE HCL (*CRX) 5 MG TAB IR PO (14:28)
== END 2022-12-30 15:20 | disposition home or self-care (01) ==
PROVIDERS: Anesthesiology; PCP Family Medicine; Visit Provider Otolaryngology
PROC: (CPT 30520; principal; 2022-12-30 09:30)
PROC: (CPT 31254; 2022-12-30 09:30)
DX: J32.9 Chronic sinusitis, unspecified (principal); J34.3 Hypertrophy of nasal turbinates; J34.2 Deviated nasal septum; I25.10 Atherosclerotic heart disease of native coronary artery without angina pectoris; J45.909 Unspecified asthma, uncomplicated; I25.2 Old myocardial infarction; F17.210 Nicotine dependence, cigarettes, uncomplicated; Z79.82 Long term (current) use of aspirin; Z79.51 Long term (current) use of inhaled steroids
CPT/HCPCS: 31254; 31256; 61782; 30520; 30140; 36415; 85014; 85018; A9270; J0690; J1100; J2250; J2405; J2704; J3010; J7120

== ENCOUNTER 2023-03-04 08:11 | Emergency (ER) | payer OTHER, SELFPAY ==
--- NOTE | ~2023-03-04 | US_ITS ---
EXAMINATION: US scrotum doppler DATE: 03/04/2023 09:09 INDICATION: Left testicular pain. TECHNIQUE: Grayscale and Doppler ultrasound images of the testes were obtained. COMPARISON: None. FINDINGS: The right testis measures 4.6 x 2.3 x 3.2 cm. The left testis measures 4.2 x 2.6 x 2.9 cm. There is a 4 mm cyst in right testis. There is a 3 mm cyst in left testis. There is normal vascular f low to both testes. The right epididymis is normal with normal vascular flow. The left epididymis dem onstrates a 7 mm cyst. Left epididymis is enlarged and hypoechoic with normal vascularity. There is n o hydrocele. There are bilateral varicoceles. IMPRESSION: 1. Enlarged and hypoechoic left epididymis, which may be chronic epididymitis. No increased vascular ity to suggest acute epididymitis. Reviewed, dictated and finalized at location A. NICAL SERVICES REP IMPRESSION: 1. Enlarged and hypoechoic left epididymis, which may be chronic epididymitis. No increased vascularity to suggest acute epididymitis.
[2023-03-04 08:15] VITALS: BP 141/75; PULSE 72; RESP 20; TEMP 36.6; O2SAT 100
[2023-03-04 08:45] LABS: Appearance Urine Clear (Clear); Bilirubin Urine Negative (Negative); Blood Urine Negative (Negative); Color Urine Dark Yellow (Yellow); Glucose Urine UA Negative (Negative); Ketones Urine Trace mg/dL (Negative); Leukocyte Esterase Ur Negative LEU/UL (Negative); Nitrate Urine Negative (Negative); Protein Urine Negative (Negative); Specific Grav Ur 1.022 (1.001-1.035); pH Urine 5.5 (5.0-9.0)
[2023-03-04 08:51] LABS: Add Urine Microscopic? NO
[2023-03-04] MEDS: HYDROcodone/acetaminophen (*CRX) 5-325 MG TABLET 1 TAB PO (09:09)
[2023-03-04] MEDS: ONDANSETRON HCL ODT 4 MG TABLET PO (09:09)
[2023-03-04] MEDS: levoFLOXacin 500 MG TABLET PO (09:34)
--- NOTE | 2023-03-04 09:36 | ED.MALEGU ---
HPI - Male Genitourinary General Chief complaint: Urogenital-Male Stated complaint: left testicular pain x 18 hours Time Seen by Provider: 03/04/23 08:24 History of Present Illness HPI Narrative: Patient states that yesterday he started having pain to his left testicle, he has not had symptoms like this before, accompanied with slight feeling of nausea. No burning or pain with urination, no dysuria, he is monogamous with and has no discharge or concern for STD. Related Data Home Medications Medication Instructions Recorded Confirmed metoprolol tartrate 25 mg tablet 25 mg PO BID 12/20/22 02/01/23 Allergies Allergy/AdvReac Type Severity Reaction Status Date / Time No Known Allergies Allergy Verified 03/04/23 08:17 Review of Systems Review of Systems: CONST: No fever. HEENT: No sore throat C/V: No chest pain RESP: No cough GI: Mild left lower abdominal discomfort : Left scrotum pain M/S: No joint pain. SKIN: No rash. NEURO: [No headache or focal numbness or weakness] PSYCH: [No depression] PENDING SALE TO [facility] Past Medical History Medical History Abscess of abdominal wall Acute right-sided low back pain with right-sided sciatica Asthma CAD (coronary atherosclerotic disease) Elevated BP without diagnosis of hypertension Juvenile idiopathic scoliosis of thoracic region Lipid screening Myocardial infarct Recurrent sinusitis Sacroiliitis Tobacco abuse Tobacco use Surgical History Surgical History History of decompression of ulnar nerve (~2013) Rt History of nasal septoplasty (~12/30/22) History of percutaneous coronary intervention Stent left circumflex 06/13/21. Family History Family History Mother Family history of suicide, Onset Age: 59 Family history of bipolar disorder Sibling Patient's sister is in good health Father Acute myocardial infarction, Onset Age: 59 Hypertension Social History Social History Social History: Smoking packs per day: 1 Smoking cigarettes per day: 20.0 Years smoked: 20 Smoking pack-years: 20.00 Smoking status: Current every day smoker Tobacco type: cigarettes Second hand tobacco smoke exposure: Yes Alcohol intake: current Drinks per week: 3 Substance use: never Substance use type: does not use Lack of Transportation: No Lack of Food: Never True Current Housing: I Have Housing Concerned About Future Housing: No Difficulty Paying Gas/Electric Bills: No Difficulty Paying for Meds: No Currently Unemployed: No Education: High School Diploma/GED Difficulty w/ Childcare or Family Care: No Living arrangements: with family Occupation/Education: occupation Gender identity (if verbalized by the patient): Male Sexual Orientation (if Verbalized by the Patient): Straight or Heterosexual Spiritual care concerns: No Exam Narrative: EXAMINATION OF ORGAN SYSTEMS/BODY AREAS: Constitutional: Vital signs per nursing GENERAL:[No acute distress, non-toxic appearing.] HEAD: Normal with no signs of head trauma. EYES: EOMI, conjunctiva normal ENT: Hearing grossly intact LUNGS: Nonlabored breathing. HEART: [Regular rate and rhythm] ABD: [Soft], [nontender to palpation] : No discharge at meatus; cremasteric reflex intact. Slight tenderness to palpation left scrotum EXT: Normal range of motion SKIN: [No rashes or lesions.] NEURO: [Alert and oriented x 3. No gross focal sensory or strength deficits.] PSYCH: Normal affect Course Vital Signs Vital signs: Vital Signs Temperature 97.9 F 03/04/23 08:15 Pulse Rate 72 03/04/23 08:15 Respiratory Rate 20 03/04/23 08:15 Blood Pressure 141/75 H 03/04/23 08:15 Pulse Oximetry 100 03/04/23 08:15 Oxygen Delivery Room Air 03/04/23 08:15 Temperature 97.9 F 03/04/23
[2023-03-04 09:45] VITALS: BP 140/75; PULSE 70; RESP 16; O2SAT 100
[2023-03-04 10:43] LABS: Chlamydia trachomatis NOT DETECTED (NOT DETECTE); Neisseria gonorrhoeae PCR NOT DETECTED (NOT DETECTE)
== END 2023-03-04 09:47 | disposition home or self-care (01) ==
PROVIDERS: Emergency Provider Emergency Medicine; PCP Family Medicine
DX: N45.1 Epididymitis (principal); I86.1 Scrotal varices; J45.909 Unspecified asthma, uncomplicated; I25.10 Atherosclerotic heart disease of native coronary artery without angina pectoris; I25.2 Old myocardial infarction; M41.114 Juvenile idiopathic scoliosis, thoracic region; F17.210 Nicotine dependence, cigarettes, uncomplicated; Z95.5 Presence of coronary angioplasty implant and graft
CPT/HCPCS: 76870; 81003; 87491; 87591; 93976; 99284; A9270

== ENCOUNTER → 2023-03-20 11:32 | Outpatient (CLI) | payer OTHER, SELFPAY ==
--- NOTE | ~2023-03-20 | MR_ITS ---
MRI of the left knee Clinical history: Chondromalacia patella Technique: Coronal proton density and proton density-weighted images, sagittal proton-density and T2 fat-sat images, and axial proton-density fat-saturated images were acquired. Findings: Anterior and posterior cruciate ligaments are intact. Medial collateral ligament and the la teral collateral again conflux are intact. Popliteus tendon is intact. There is prominent horizontal tear of the posterior horn and body of the medial meniscus. There is an associated 1.7 x 1.1 x 2.4 cm septated para-meniscal cyst at the medial joint line region (sagittal image 6). No lateral meniscal tear seen. Articular cartilage is well preserved throughout the knee. Bone marrow signals are unremarkable. Extensor mechanism is intact. No significant joint effusion or Chao's cyst. Impression: Prominent horizontal tear of the posterior horn and body of the medial meniscus, with associated 1.7 x 1.1 x 2.4 cm parameniscal cyst at the medial joint line. Patellar articular cartilage is intact. Reviewed, dictated and finalized at location . ACOUSTIC ANALYST Impression: Prominent horizontal tear of the posterior horn and body of the medial meniscus , with associated 1.7 x 1.1 x 2.4 cm parameniscal cyst at the medial joint line . Patellar articular cartilage is intact.
== END ==
PROVIDERS: PCP Orthopaedic Surgery; Visit Provider Orthopaedic Surgery
DX: S83.242A Other tear of medial meniscus, current injury, left knee, initial encounter (principal); X58.XXXA Exposure to other specified factors, initial encounter
CPT/HCPCS: 73721

== ENCOUNTER → 2023-04-20 07:48 | Outpatient (CLI) | payer OTHER, SELFPAY ==
--- NOTE | ~2023-04-20 | MR_ITS ---
EXAMINATION: MR brain/brain stem wo con DATE: 04/20/2023 09:09 INDICATION: Headache, unspecified. TECHNIQUE: Magnetic resonance imaging (MRI) of the brain and brainstem was performed without intraven ous contrast. COMPARISON: None. FINDINGS: There are approximately 8 scattered foci of increased T2-weighted signal intensity in the c erebral white matter. There is no acute ischemic infarct or intracranial hemorrhage. The ventricles a re normal in size. There is mild mucosal thickening in right maxillary sinus. The orbits are normal. The mastoid air cells are normal. IMPRESSION: 1. Mild nonspecific cerebral white matter disease, which likely represents chronic small vessel ische rose disease. Reviewed, dictated and finalized at location A. PING CLERK IMPRESSION: 1. Mild nonspecific cerebral white matter disease, which likely represents claims director enrique small vessel ischemic disease.
== END ==
PROVIDERS: PCP Family Medicine; Visit Provider Family Medicine
DX: J32.9 Chronic sinusitis, unspecified (principal); R42 Dizziness and giddiness; R51.9 Headache, unspecified; R90.82 White matter disease, unspecified
CPT/HCPCS: 70551

== ENCOUNTER 2023-05-08 08:57 | Outpatient (CLI) | payer OTHER, SELFPAY ==
--- NOTE | ~2023-05-08 | XR_ITS ---
Clinical Indication: Wheezing PA and lateral views of the chest: Comparison: 04/08/2022 Findings: The lungs are clear, without evidence of focal consolidation or pleural effusion. Cardiome diastinal silhouette is within normal limits. Bones and soft tissues are unremarkable. Impression: Normal chest. Reviewed, dictated and finalized at [facility]. UCTION CONTROL COORDINATOR Impression: Normal chest.
== END 2023-05-08 08:58 | disposition home or self-care (01) ==
LOC: ANHIMG 08:58
PROVIDERS: PCP Family Medicine; Visit Provider Physician Assistant
DX: R06.2 Wheezing (principal)
CPT/HCPCS: 71046

== ENCOUNTER 2023-05-09 01:02 | Day surgery (SDC) | payer OTHER, SELFPAY ==
[2023-05-03 09:17] VITALS: BMI 27.5
--- NOTE | 2023-05-03 09:22 | PC.NURSE ---
Report to the Outpatient Waiting Room, entrance under the green pavilion located off [facility], at time 1130 on date 05/09/23. Planned Procedure Time: 1330. Time changes happen often and if your time is changed the preop area will call you the afternoon before. - You and your visitor will be asked to self-screen and do not enter if you have any COVID symptoms. - A mask is optional within the hospital at this time. Patients may have clear liquids (water, carbonated beverages, clear teas, apple juice) until 3 hours prior to surgery with a maximum of 20 ounces. - No food from midnight until time of surgery Take the following medications with a SIP of water the morning of surgery: INHALERS, METOPROLOL, TYLENOL IF NEEDED DO NOT STOP ANY OF YOUR OTHER PRESCRIPTION MEDICATIONS PRIOR TO SURGERY ?EXCEPT THE FOLLOWING Medications to discontinue per physician: ASPIRIN Date to take last dose: PT TOOK DOSE 05/02, INSTRUCTED NO MORE UNTIL AFTER SURGERY Please no make-up, nail malay, hairspray, perfume, deodorant, or body powder the day of surgery. No jewelry (including any body piercings) or valuables the day of surgery, leave them at home. Please take a shower or bath the night before, or the morning of, surgery with an antibacterial soap. Wear comfortable, loose fitting clothing. - Jewelry must be removed prior to entering the operating room. Rings and piercings that are not removed may be cut off. - The hospital will not accept responsibility for valuables. - Please leave all valuables, including medications, at home the day of surgery. If you are going home after surgery, a licensed flatbed driver must drive you home. - NO public transportation without another adult if you receive anesthesia. - We recommend that an adult stay with you for 24 hours following discharge. - We also recommend that you do not drive, make important decision, drink alcoholic beverages, or take any drugs that were not prescribed by your health care provider for at least 24 hours after your discharge time. Follow any additional instructions given to you from your surgeon. If you or anyone in your household have experienced Covid symptoms in the past week, please notify your surgeon or the nurse liaison at the phone number below for possible testing. Telephone instructions given to PT - ROB CALI and asked if any additional questions and then verbalized understanding. Patient advised to call surgeon office or pre surgery nurse liaison [phone] if any additional questions.
--- NOTE | 2023-05-08 15:34 | WPDANESEPPF ---
Anes - Initial Pre Proc Eval Procedure: Operation Date: 05/09/23 13:30 Proposed Procedures p Left Knee Arthroscopic Partial Medial Meniscectomy - Fuentes Stevenson MD Date/Time: 05/08/23 15:34 Surgeon: Fuentes Stevenson MD Pre Op Diagnosis: left medial meniscus tear Patient Data Age: 42 Gender: M Height: 1.83 m Weight: 92.1 kg Allergies Allergy/AdvReac Type Severity Reaction Status Date / Time No Known Allergies Allergy Verified 05/09/23 11:41 Home Medications Medication Instructions Recorded Confirmed Type aspirin 81 mg tablet,delayed 81 mg PO QAM 30 days #30 tabs 06/14/21 05/09/23 Rx release atorvastatin 40 mg tablet 80 mg PO HS 30 days #60 tabs 06/14/21 05/09/23 Rx nitroglycerin 0.4 mg sublingual 0.4 mg sublingual Q5MIN PRN Chest 06/16/21 05/08/23 Rx tablet (Nitrostat) Pain #30 tabs albuterol sulfate 90 mcg/actuation 2 inh inhalation Q4H PRN shortness 04/07/22 05/09/23 Rx aerosol inhaler of breath or wheezing #8.5 grams albuterol sulfate 2.5 mg/3 mL 2.5 mg (3 mL) inhalation Q4-6H PRN 04/11/22 05/09/23 Rx (0.083 %) solution for nebulization asthma #90 mL metoprolol tartrate 25 mg tablet 25 mg PO BID 12/20/22 05/09/23 History azelastine 137 mcg (0.1 %) nasal 137 mcg (0.137 mL) intranasal Q12H 05/01/23 05/09/23 Rx spray aerosol #30 mL fluticasone propionate 50 1 spray intranasal DAILY #16 grams 05/01/23 05/09/23 Rx mcg/actuation nasal spray,suspension fluticasone fur. 200 mcg-umeclid 1 inh inhalation DAILY 05/08/23 05/09/23 History 62.5 mcg-vilant 25 mcg inhalat.powder (Trelegy Ellipta) Patient hx anesthesia problems: none Family hx anesthesia problems: none Results Review: All pre-operative results and documents have been reviewed as part of the pre-operative evaluation. [facility] Past Medical History Medical History Abscess of abdominal wall Acute right-sided low back pain with right-sided sciatica Asthma CAD (coronary atherosclerotic disease) Elevated BP without diagnosis of hypertension Hyperlipidemia Hypertension Juvenile idiopathic scoliosis of thoracic region Lipid screening Myocardial infarct Recurrent sinusitis Sacroiliitis Tobacco abuse Tobacco use Surgical History Surgical History History of decompression of ulnar nerve (~2013) Rt History of nasal septoplasty (~12/30/22) History of percutaneous coronary intervention Stent left circumflex 06/13/21. Family History Family History Mother Family history of suicide, Onset Age: 59 Family history of bipolar disorder Sibling Patient's sister is in good health Father Acute myocardial infarction, Onset Age: 59 Hypertension Social History Social History Social History: Smoking packs per day: 0.5 Smoking cigarettes per day: 10.0 Years smoked: 14 Smoking pack-years: 7.00 Smoking status: Current every day smoker Tobacco type: cigarettes Second hand tobacco smoke exposure: Yes Alcohol intake: current Drinks per week: 2 Substance use: never Substance use type: does not use Do You Feel Safe in your Home?: Yes Lack of Transportation: No Lack of Food: Never True Current Housing: I Have Housing Concerned About Future Housing: No Difficulty Paying Gas/Electric Bills: No Difficulty Paying for Meds: No Currently Unemployed: No Education: High School Diploma/GED Difficulty w/ Childcare or Family Care: No Living arrangements: with family Occupation/Education: occupation Gender identity (if verbalized by the patient): Male Sexual Orientation (if Verbalized by the Patient): Straight or Heterosexual Spiritual care concerns: No Anes - Eval Final PreProcedure Day of Procedure 05/08/23 15:34 Patient weight: overweight Heart: regular rate and rhythm Lungs: cl
[2023-05-09] VITALS (10 sets, daily range): BP systolic 116–133; BP diastolic 63–89; PULSE 65–78; RESP 16–24; TEMP 36.7; O2SAT 94–99
[2023-05-09] MEDS: LACTATED RINGERS 1,000 ML 30 ML IV CONT (12:00)
[2023-05-09] MEDS: ACETAMINOPHEN 500 MG TABLET 1000 MG PO (12:00)
[2023-05-09] MEDS: KETOROLAC 15 MG/ML VIAL (*BKC) IV PUSH (12:26)
--- NOTE | 2023-05-09 13:02 | WPDHPUPDATE1 ---
History and Physical Update Update Date/Time: 05/09/23 13:02 History and Physical has been reviewed, including an updated exam of the patient. There are NO changes in the patient's condition. Risks, benefits, and alternatives have been discussed and questions answered. Patient agrees to proceed with procedure.
[2023-05-09] MEDS: ceFAZolin 2 GM/D5W 50 ML 2 GM/50 ML BAG IVPB (13:14)
[2023-05-09] MEDS: BUPIVACAINE/EPINEPHRINE 0.5% 30 ML VIAL INFILTRATE (13:27)
--- NOTE | 2023-05-09 15:54 | W.PM.PROC2 ---
Procedure Note - Detailed Date of Procedure 05/09/23 Pre-op Diagnosis Left knee medial meniscus tear Post-op Diagnosis Same Procedure Performed Arthroscopic partial medial meniscectomy, left knee. Surgeon Fuentes Stevenson MD Anesthesia General Findings Extensive horizontal cleavage tear, posterior horn. Medial femur chondromalacia grade 0, medial tibia grade 0. Lateral femur chondromalacia grade 0, lateral tibia grade 0. Patellar grade 0, trochlea grade 0. ACL intact. Description of Procedure The patient was identified and the surgical site confirmed and signed in the preoperative holding area. Antibiotics were started per protocol, and the patient was brought to the operative room and transferred to the OR table. A general anesthetic was administered. Supine position with the operative lower extremity position in the leg avery after placement of a well padded tourniquet. The leg support was lowered and the contralateral limb was supported with a soft bolster. The knee was prepped and draped in the usual sterile fashion. A time-out was performed. The portal sites were marked and infiltrated with 0.5% Marcaine 20 mL. The limb was exsanguinated and the tourniquet inflated to 300 mL Hg. Standard inferolateral and inferomedial portals were established. Inflow was obtained with the saline pump. The camera was introduced. Diagnostic inspection of the joint was accomplished. The meniscus was debrided with the arthroscopic shaver and punches until stable. The arthroscopic instruments were removed. The tourniquet released and wounds closed with subcutaneous 4-0 Monocryl absorbable suture. Steri strips and a sterile dressing were applied. A light elastic wrap was placed. The patient was extubated and brought to the recovery room in stable condition. Estimated Blood Loss 5 Drains No Complications No immediate complications Condition Stable Disposition PACU [facility] Billing Surgery - Charge Forward: Surgery Billing
== END 2023-05-09 16:00 | disposition home or self-care (01) ==
PROVIDERS: PCP Family Medicine; Visit Provider Orthopaedic Surgery
PROC: (CPT 29870; principal; 2023-05-09 13:30)
DX: S83.242A Other tear of medial meniscus, current injury, left knee, initial encounter (principal); T14.90XA Injury, unspecified, initial encounter; I25.10 Atherosclerotic heart disease of native coronary artery without angina pectoris; F17.210 Nicotine dependence, cigarettes, uncomplicated
CPT/HCPCS: 29881; A9270; J0690; J1100; J1885; J2250; J2405; J2704; J3010; J7120

== ENCOUNTER 2023-07-31 08:10 | Outpatient (CLI) | payer OTHER, SELFPAY ==
--- NOTE | ~2023-07-31 | CT_ITS ---
Clinical Indication: Chest pain CT Scan of the Chest with Contrast: Technique: Contiguous sections were acquired throughout the chest after intravenous administration of 75 cc of Omnipaque 350. Dose reduction technique was used on this scan by utilizing automated exposu re control and iterative reconstruction technique. The dose-length product (DLP) was 189.53 mGy-cm. Findings: There is no evidence of any significant mediastinal, hilar or axillary lymphadenopathy. There is no f illing defect in the pulmonary arterial tree to suggest pulmonary embolus. There is no evidence of ao rtic dissection or aneurysm. There is no evidence of pleural or pericardial effusion. The lungs are clear. No pulmonary nodules or infiltrates are noted. Images through the upper abdomen reveal 1.7 cm subtle enhancing lesion in the right hepatic lobe (axi al image 15).. Impression: Clear lungs. 1.7 cm subtle enhancing lesion right hepatic lobe, indeterminate. Dedicated hepatic MR or CT recommen ded to further evaluate. Reviewed, dictated and finalized at [facility]. Impression: Clear lungs. 1.7 cm subtle enhancing lesion right hepatic lobe, indeterminate. Dedicated hep atic MR or CT recommended to further evaluate.
[2023-07-31 08:42] LABS: Estimated Glomerular Filt Rate > 60
== END 2023-07-31 08:11 | disposition home or self-care (01) ==
PROVIDERS: PCP Family Medicine; Visit Provider Nurse Practitioner Adult Health
DX: R07.81 Pleurodynia (principal)
CPT/HCPCS: 71260; Q9967

== ENCOUNTER 2023-08-15 10:54 | Outpatient (CLI) | payer OTHER, SELFPAY ==
--- NOTE | ~2023-08-15 | MR_ITS ---
EXAMINATION: MR abdomen wo/w con DATE: 08/15/2023 12:03 INDICATION: Liver disease, unspecified. TECHNIQUE: Magnetic resonance imaging (MRI) of the abdomen was performed without and with 17 mL Multi Gregory intravenous contrast. COMPARISON: Chest CT 07/31/2023 FINDINGS: There are 2.8 cm and 1.1 cm arterially hyperenhancing masses in right hepatic lobe without washout. T he gallbladder, spleen, pancreas, adrenal glands, and right kidney are normal. There is a 6 mm cyst i n left kidney. There are no dilated loops of bowel. There are no pathologically enlarged lymph nodes. There is no free intraperitoneal fluid. IMPRESSION: 1. Two hyperenhancing masses in the liver. In the absence of known malignancy or chronic liver diseas e, these findings are likely hemangiomas or focal nodular hyperplasia. Reviewed, dictated and finalized at location E. IMPRESSION: 1. Two hyperenhancing masses in the liver. In the absence of known malignancy o r chronic liver disease, these findings are likely hemangiomas or focal nodular hyperplasia.
== END 2023-08-15 10:55 ==
LOC: MICIMG 10:55
PROVIDERS: PCP Family Medicine; Visit Provider Family Medicine
DX: K76.9 Liver disease, unspecified (principal)
CPT/HCPCS: 74183; A9577

== ENCOUNTER 2023-08-24 00:39 | Day surgery (SDC) | payer OTHER, SELFPAY ==
[2023-08-23 13:34] VITALS: BMI 26.6
[2023-08-24] VITALS (8 sets, daily range): BP systolic 98–133; BP diastolic 61–77; PULSE 58–70; RESP 14–22; TEMP 36.4; O2SAT 96–100
[2023-08-24 07:41] LABS: Anion Gap 9 mmol/L (4-12); Blood Urea Nitrogen 19 mg/dL (9-20); Calcium 9.8 mg/dL (8.4-10.2); Carbon Dioxide 28 mmol/L (22-30); Chloride 105 mmol/L (98-107); Estimated CRCL calculation 84 ml/min; Estimated Glomerular Filt Rate > 60; Glucose 104 mg/dL (65-110); Potassium 4.2 mmol/L (3.4-5.0); Sodium 142 mmol/L (137-145)
[2023-08-24 07:43] LABS: Basophils Percent Auto 0.5 % (0.2-1.2); Eosinophils Absolute Auto 0.1 K/mm3 (0-0.3); Eosinophils Percent Auto 3.4 % (0-4.4); Hematocrit 48.2 % (42.0-52.0); Hemoglobin 15.9 g/dL (14.0-18.0); Immature Granulocyte Absolute 0.01 K/mm3 (0.00-0.031); Immature Granulocyte Percent A 0.2 % (0-0.5); Lymphocytes Absolute Auto 1.16 K/mm3 (0.9-3.2); Lymphocytes Percent Auto 28.2 % (18.3-44.2); Mean Corpuscular Hemoglobin 30.2 pg (26-34); Mean Corpuscular Volume 91.5 fl (80-100); Mean Platelet Volume 9.7 fl (7.4-10.4); Monocytes Absolute Auto 0.5 K/mm3 (0.1-0.6); Monocytes Percent Auto 12.4 % (2.6-8.5); Neutrophils Absolute Auto 2.3 K/mm3 (1.3-6.7); Neutrophils Percent Auto 55.3 % (45.5-73.1); Platelet Count Result 204 k/mm3 (150-375); Red Blood Count 5.27 M/mm3 (4.6-6.20); Red Cell Distribution Width 12.3 % (11.5-14.5); White Blood Count 4.1 K/mm3 (4.5-10.0)
[2023-08-24 07:44] LABS: INR 0.9; Prothrombin Time 12.8 Seconds (11.1-14.7)
--- NOTE | 2023-08-24 08:44 | WPDHPUPDATE1 ---
History and Physical Update Update Date/Time: 08/24/23 08:44 History and Physical has been reviewed, including an updated exam of the patient. There are NO changes in the patient's condition. Risks, benefits, and alternatives have been discussed and questions answered. Patient agrees to proceed with procedure.
--- NOTE | 2023-08-24 08:44 | WPDMODSED ---
Moderate Sedation Note-Pt Data Patient Data Diagnosis: Coronary artery disease Present Complaint: Coronary artery disease Procedure to be performed/Plan: Coronary angiography, left heart cath, +/- PCI Allergies Allergy/AdvReac Type Severity Reaction Status Date / Time No Known Allergies Allergy Verified 08/23/23 13:46 Home Medications Medication Instructions Recorded Confirmed Type aspirin 81 mg tablet,delayed 81 mg PO QAM 30 days #30 tabs 06/14/21 08/23/23 Rx release atorvastatin 40 mg tablet 80 mg PO HS 30 days #60 tabs 06/14/21 08/23/23 Rx nitroglycerin 0.4 mg sublingual 0.4 mg sublingual Q5MIN PRN Chest 06/16/21 08/23/23 Rx tablet (Nitrostat) Pain #30 tabs albuterol sulfate 90 mcg/actuation 2 inh inhalation Q4H PRN shortness 04/07/22 08/23/23 Rx aerosol inhaler of breath or wheezing #8.5 grams albuterol sulfate 2.5 mg/3 mL 2.5 mg (3 mL) inhalation Q4-6H PRN 04/11/22 08/23/23 Rx (0.083 %) solution for nebulization asthma #90 mL metoprolol tartrate 25 mg tablet 25 mg PO BID 12/20/22 08/23/23 History fluticasone fur. 200 mcg-umeclid 1 inh inhalation DAILY #60 ea 05/22/23 08/23/23 Rx 62.5 mcg-vilant 25 mcg inhalat.powder (Trelegy Ellipta) fluticasone propionate 50 1 spray intranasal DAILY 08/23/23 08/23/23 History mcg/actuation nasal spray,suspension Current Medications: Active Medications Sodium Chloride (Normal Saline Iv) 500 mls @ 100 mls/hr IV CONT .Q5H ANA LAURA Sedation/Anesthesia: No previous sedation/anesthesia problems (including family history). [facility] Past Medical History Medical History Abscess of abdominal wall Acute right-sided low back pain with right-sided sciatica Asthma CAD (coronary atherosclerotic disease) Dizziness Elevated BP without diagnosis of hypertension Hyperlipidemia Hypertension Juvenile idiopathic scoliosis of thoracic region Lipid screening Myocardial infarct Nasal pain Occipital headache Recurrent sinusitis Sacroiliitis Tobacco abuse Tobacco use Surgical History Surgical History History of decompression of ulnar nerve (~2013) Rt History of nasal septoplasty (~12/30/22) History of percutaneous coronary intervention Stent left circumflex 06/13/21. Status post medial meniscectomy of left knee (~05/09/23) Family History Family History Mother Family history of suicide, Onset Age: 59 Family history of bipolar disorder Sibling Patient's sister is in good health Father Acute myocardial infarction, Onset Age: 59 Hypertension Social History Social History Social History: Smoking packs per day: 0.5 Smoking cigarettes per day: 10.0 Years smoked: 15 Smoking pack-years: 7.50 Smoking status: Current every day smoker Tobacco type: e-cigarettes/vaping Second hand tobacco smoke exposure: Yes Alcohol intake: current Drinks per week: 1 Substance use: never Substance use type: does not use Do You Feel Safe in your Home?: Yes Lack of Transportation: No Lack of Food: Never True Current Housing: I Have Housing Concerned About Future Housing: No Difficulty Paying Gas/Electric Bills: No Difficulty Paying for Meds: No Currently Unemployed: No Education: High School Diploma/GED Difficulty w/ Childcare or Family Care: No Living arrangements: with family Occupation/Education: occupation Gender identity (if verbalized by the patient): Male Sexual Orientation (if Verbalized by the Patient): Straight or Heterosexual Spiritual care concerns: No Mod Sed Physical Exam Physical Exam Pre Procedural Exam: Normal: Appearance, Lungs, Heart Rate, Heart Rhythm, Abdomen, Extremities and Skin Hours since solid foods: 12 Hours since liquid intake: 8 Mallampati Classification: class II Internal Medicine - PN: Obj Da Vital Signs Vital Signs:
--- NOTE | 2023-08-24 08:45 | WPDCARDPROC ---
Cardiac Cath Procedure Note Date of procedure:: 08/24/23 Performing physician:: CATHETERIZATION LABORATORY REPORT Procedure Date: 08/24/2023 Energy Trading Analyst: Trino Pantoja M.D., [facility]? Referring Physician: Keith Pratt M.D. ? Anesthesia: Versed and Fentanyl were ordered and given in my presence at 09:12, procedure ended at 09:40. Supervision of nurse monitored moderate sedation with Versed and Fentanyl was provided for 28 minutes. Total of Versed 2mg and Fentanyl 75mcg were administered by the Char Filter Tank Tender Head RN Penny Obrien. Pre-op Diagnosis: Coronary artery disease Post-op Diagnosis: 1. Non-obstructive coronary artery disease with patent LCX stent 2. Left ventricular end-diastolic pressure of 14mmHg Procedure(s): 1. Moderate sedation 2. Ultrasound-guided access of the right common femoral artery 3. Coronary angiography 4. Left heart cath 5. Angioseal closure of the right common femoral artery Access Site: Right common femoral artery Brief History and Clinical Indications: Patient is a 42 year old male with coronary artery disease s/p PCI to LCX in 2021 who is referred for [facility] for angina. All risks, benefits and alternatives to left heart catheterization with or without percutaneous coronary intervention was discussed at length with the patient. Risk of complications including but not limited to bleeding, infection, arrhythmia, stroke, worsening kidney function, blood loss, groin hematoma, limb loss, emergency coronary artery bypass grafting, and even were discussed with the patient and all questions were answered. The patient understood and wished to proceed. Time out called, patient name, date of , medical record number, allergies, procedure performed, identify Energy Trading Analyst, patient and staff member concurred with accurate data, procedure carried on. Findings: LEFT HEART CATHETERIZATION FINDINGS: 1. Left main: The left main coronary artery is widely patent without any significant obstructive disease. 2. Left anterior descending: The LAD has mild disease in the mid portion. The first diagonal branch has mild disease in its proximal portion. The second diagonal branch has mild disease in the proximal portion. Slow flow noted in the LAD. No significant obstructive angiographic disease. 3. Left circumflex: Widely patent stent in the mid LCX. The obtuse marginal branches are of very small caliber size. No significant obstructive angiographic disease. 4. Right coronary artery: The RCA is the dominant vessel. The conus branch has a separate ostium from the RCA. There is mild disease in the mid portion of the RCA. No significant obstructive angiographic disease. 5. Left ventricle: A. End-diastolic pressure 14 mmHg. B. LV gram deferred. C. No significant gradient across aortic valve on catheter pullback. Description of Procedure: Informed consent signed and placed in the chart. Patient transferred to tender labor room. Prepped and draped in usual sterile fashion. Patient had weak pulse in the right radial artery area. Ultrasound did not show a pulsatile artery. Therefore, radial artery access was not pursued. 2% lidocaine in right groin area. Micropuncture needle used to access right common femoral artery with Seldinger technique under fluoroscopic and ultrasound guidance. J wire advanced, micropuncture cannula placed. Right iliofemoral angiogram performed, access confirmed and micropuncture cannula exchanged for 5-FR sheath. 5F FL 4 diagnostic catheter engaged Left Main Coronary Artery. 5F FR 4 diagnostic catheter engaged Right Coronary Artery. Multiple orthogonal angiogram obtained and reviewed 5F Pigtail diagnostic catheter crossed aortic valve to obtain LVEDP, LV angiogram deferred. Hemostasis was achieved by 6F Angioseal. Post Operative Condition: Stable No significant blood loss Disposition: Home Plan: The patient will be monitored in the recovery area. Discharge home after post cath bed rest is
== END 2023-08-24 12:50 | disposition home or self-care (01) ==
PROVIDERS: PCP Family Medicine; Visit Provider Internal Medicine
PROC: 4A023N7 Measurement of Cardiac Sampling and Pressure, Left Heart, Percutaneous Approach (ICD-10-PCS; CPT 93452; principal; 2023-08-24 08:30)
DX: I25.119 Atherosclerotic heart disease of native coronary artery with unspecified angina pectoris (principal); I10 Essential (primary) hypertension; E78.5 Hyperlipidemia, unspecified; M41.114 Juvenile idiopathic scoliosis, thoracic region; I25.2 Old myocardial infarction; J45.909 Unspecified asthma, uncomplicated; I21.4 Non-ST elevation (NSTEMI) myocardial infarction; F17.290 Nicotine dependence, other tobacco product, uncomplicated; Z79.82 Long term (current) use of aspirin; Z79.51 Long term (current) use of inhaled steroids; Z98.890 Other specified postprocedural states; Z98.61 Coronary angioplasty status; Z82.49 Family history of ischemic heart disease and other diseases of the circulatory system
CPT/HCPCS: 36415; 80048; 85025; 85610; 93458; C1760; C1887; C1894; G0269; J1644; J2250; J3010; J7040

== ENCOUNTER 2024-01-23 12:51 | Outpatient (CLI) | payer OTHER, SELFPAY ==
--- NOTE | ~2024-01-23 | MR_ITS ---
MRI of the left knee Clinical history: Chondromalacia patella Technique: Coronal proton density and proton density-weighted images, sagittal proton-density and T2 fat-sat images, and axial proton-density fat-saturated images were acquired. COMPARISON: 03/20/2023 Findings: Anterior and posterior cruciate ligaments are intact. Medial collateral ligament and the la teral collateral ligament complex are intact. Popliteus tendon is intact. There is extensive horizontal tear of the posterior horn and body of the medial meniscus. No lateral meniscal tear seen. Articular cartilage is well preserved throughout the knee. Bone marrow signals are unremarkable. Extensor mechanism intact. No significant joint effusion or Chao's cyst. Impression: Extensive horizontal tear of the posterior horn and body of the medial meniscus, similar to prior exa m. Previously noted para-meniscal cyst is resolved. Patellar articular cartilage is intact. Reviewed, dictated and finalized at location M. Impression: Extensive horizontal tear of the posterior horn and body of the medial meniscus , similar to prior exam. Previously noted para-meniscal cyst is resolved. Patellar articular cartilage is intact.
== END 2024-01-23 12:52 | disposition home or self-care (01) ==
LOC: MICIMG 12:51
PROVIDERS: PCP Physician Assistant Surgical; Visit Provider Physician Assistant Surgical
DX: M22.42 Chondromalacia patellae, left knee (principal); S83.242A Other tear of medial meniscus, current injury, left knee, initial encounter
CPT/HCPCS: 73721

== ENCOUNTER 2024-05-09 09:05 | Emergency (ER) | payer OTHER, SELFPAY ==
[2024-05-09 09:12] VITALS: BP 144/79; PULSE 71; RESP 18; TEMP 36.2; O2SAT 100
--- NOTE | 2024-05-09 09:19 | ED_ITS ---
HPI - URI/Sore Throat General Chief Complaint: Upper Respiratory Infection Stated Complaint: Sore throat Time Seen by Provider: 05/09/24 09:19 Source: patient Mode of arrival: ambulatory Limitations: no limitations History of Present Illness HPI Narrative: 43 yo M presents with pain to L side of throat only when swallowing and to L ear. Reports L earlobe feels warm . Afebrile. patient was diagnosed with strep throat March 28. Completed antibiotic. has history of bacterial sinusitis. Recently call primary care physician regarding sinus congestion and was prescribe steroid. Is still taking steroids. No difficulty swallowing. All systems reviewed and negative except as noted above. Related Data Home Medications ?Medication ?Instructions ?Recorded ?Confirmed ?Last Taken ?Type metoprolol tartrate 25 mg tablet 25 mg PO BID 12/20/22 03/28/24 08/23/23 History fluticasone propionate 50 1 spray intranasal DAILY 08/23/23 03/28/24 08/23/23 History mcg/actuation nasal spray,suspension Allergies Allergy/AdvReac Type Severity Reaction Status Date / Time No Known Allergies Allergy Verified 05/09/24 09:18 Review of Systems Review of Systems: CONSTITUTIONAL: Denies fever, chills, or sweats. EYES: Denies visual changes, redness, or discharge. ENT: Denies rhinorrhea, congestion . Reports pain to left side of throat and left ear pain. CARDIOVASCULAR: Denies chest pain, palpitations, or edema. RESPIRATORY: Denies cough or dyspnea. GASTROINTESTINAL: Denies abdominal pain, nausea, vomiting, or diarrhea. GENITOURINARY: Denies dysuria or hematuria. SKIN: Denies rash or itching. MUSCULOSKELETAL: Denies back pain, joint pain, or myalgia. NEUROLOGIC: Denies headache, numbness, or weakness. PSYCHIATRIC: Denies anxiety or depression. All other systems reviewed are negative, except as documented in HPI. [facility] Past Medical History Medical History Abscess of abdominal wall Acute asthmatic bronchitis Acute right-sided low back pain with right-sided sciatica Acute sinusitis Asthma Asthma exacerbation Bloody nose Bronchitis Bronchitis Bursitis of right shoulder CAD (coronary atherosclerotic disease) Chest pain Chronic sinusitis Chronic sinusitis Dizziness Elevated BP without diagnosis of hypertension Hyperlipidemia Hypertension Hypertrophy of both inferior nasal turbinates Hypertrophy of both inferior nasal turbinates Juvenile idiopathic scoliosis of thoracic region Laceration of leg not thigh, left Left-sided epistaxis Lipid screening Myocardial infarct Nasal congestion Nasal crusting Nasal folliculitis Nasal pain Nasal septal deviation Nasal septal deviation Non-ST elevation MD (NSTEMI) Occipital headache Osteolysis, right shoulder PND (post-nasal drip) Pneumonia Post-operative pain Recurrent epistaxis Recurrent sinusitis Recurrent sinusitis Right rotator cuff tendinitis Right shoulder pain Sacroiliitis Smoker Sore throat Subacute sinusitis Tobacco abuse Tobacco use Surgical History Surgical History History of decompression of ulnar nerve (~2013) Rt History of nasal septoplasty (~12/30/22) History of percutaneous coronary intervention Stent left circumflex 06/13/21. Status post medial meniscectomy of left knee (~05/09/23) Family History Family History Mother Family history of suicide, Onset Age: 59 Family history of bipolar disorder Sibling Patient's sister is in good health Father Acute myocardial infarction, Onset Age: 59 Hypertension Social History Social History Social History: Smoking packs per day: 0.5 Smoking cigarettes per day: 10.0 Years smoked: 15 Smoking pack-years: 7.50 Smoking status: Former smoker (now vaping) Tobacco type: e-cigarettes/vaping Second hand tobacco smoke exposure: Yes Alcohol intake: current Drinks per week: 1 Substance use: never Substance use type: does not use Do You Feel Safe in your Home?: Yes Lack of Transportation: No Lack of Food: Never True Current Housing: I Have Housing Concerned About Future Housing: No Difficulty Paying Gas/Electric Bills: No Difficulty Paying for Meds: No Currently Unemployed: No Education: High School Diploma/GED Difficulty w/ Childcare or Family Care: No Living arrangements: with family Occupation/Education: occupation Gender identity (if verbalized by the patient): Male Sexual Orientation (if Verbalized by the Patient): Straight or Heterosexual Spiritual care concerns: No Comments At time of signature, agree with nursing past medical, surgical, social and family history. There is no relevant family history pertinent to the presenting complaint. Exam Narrative: GENERAL: This is a well-nourished, well-developed patient, in no apparent distre ss. HEAD: normocephalic, atraumatic. EYES: PERRL. Sclera clear/white. Vision is grossly intact. EARS: right external ear is normal. Left ear lobe is erythematous without swelling or warmth. No tenderness on palpation., auditory canals clear and without drainage, left TM is erythematous, slightly bulging with fluid. Right TM is normal. No perforation bilaterally. Hearing grossly intact. NOSE: External nose normal with Mild congestion with clear nasal drainage THROAT: Mucous membranes moist, Posterior pharynx is normal in appearance. No erythema, exudates or tonsillar swelling. No concerns for tonsillar abscess. NECK: Neck supple, non-tender without lymphadenopathy, masses or thyromegaly. CARDIOVASCULAR: Regular rate and rhythm without murmurs, gallops, or rubs. RESPIRATORY: Clear to auscultation. Breath sounds equal bilaterally. No wheezes, rales, or rhonchi. SKIN: warm, Dry, intact with no suspicious lesions or rash, good texture and turgor. NEURO: awake, alert, and oriented to person, place and time. There were no obvious focal neurologic abnormalities. EXTREMITIES: No joint tenderness, effusion, or edema noted. Course Course Level of Care: Express Care Visit Vital Signs Vital signs: Vital Signs Temperature 36.2 C L 05/09/24 09:12 Pulse Rate 71 05/09/24 09:12 Respiratory Rate 18 05/09/24 09:12 Blood Pressure 144/79 H 05/09/24 09:12 Pulse Oximetry 100 05/09/24 09:12 Oxygen Delivery Room Air 05/09/24 09:12 Temperature 36.2 C L 05/09/24 09:12 Pulse Rate 71 05/09/24 09:12 Respiratory Rate 18 05/09/24 09:12 Blood Pressure 144/79 H 05/09/24 09:12 Pulse Oximetry 100 05/09/24 09:12 Oxygen Delivery Room Air 05/09/24 09:12 Reviewed MDM - URI/Sore Throat MDM Narrative Medical decision making narrative: Will treat patient with cefdinir for left otitis media. Exam of throat is normal, no concerns for tonsillar abscess. Patient is having pain to left side of throat only with swelling care. Could be possibly related to left ear infection. Recommend follow-up with primary care physician if symptoms are not improving. Patient is aware of diagnosis, understands and agrees to treatment plan. Anticipatory guidance given. Patient agrees to follow-up as directed and is aware of reasons to seek care at the emergency department. Portions of this record may have been created with voice recognition software Differential Diagnosis Differential diagnosis: Likely upper respiratory infection, otitis media, sinusitis and pharyngitis Discharge Plan Discharge Clinical Impression: Acute left otitis media Patient Disposition: Home, Self-Care Condition: Stable Instructions: Antibiotic Form, Ear Infection (ED) Additional Instructions: take antibiotic as prescribed until gone. Alternate between ibuprofen and Tylenol every 4 hours as needed to treat pain. Continue taking prednisone that was prescribed by her primary care physician. Follow-up at scheduled appointment. Patient Language: Chadian Prescriptions: New cefdinir 300 mg capsule 300 mg PO Q12H 10 Days Qty: 20 0RF No Action metoprolol tartrate 25 mg tablet 25 mg PO BID fluticasone propionate 50 mcg/actuation spray,suspension 1 spray intranasal DAILY aspirin 81 mg Tablet,Delayed Release (Dr/Ec) 81 mg PO QAM 30 Days Qty: 30 11RF atorvastatin 40 mg Tablet 80 mg PO HS 30 Days Qty: 60 11RF nitroglycerin [Nitrostat] 0.4 mg Tablet, Sublingual 0.4 mg sublingual Q5MIN PRN (Reason: Chest Pain) Qty: 30 2RF albuterol sulfate 90 mcg/actuation HFA aerosol inhaler 2 inh inhalation Q4H PRN (Reason: shortness of breath or wheezing) Qty: 8.5 4RF prednisone 10 mg tablet 10 mg PO DAILY Qty: 30 0RF Rx Instructions: Take PO 4 tabs daily x3 days, 3 tabs daily x3 days, 2 tabs daily x3 days, 1 tab daily x3 days ipratropium bromide 21 mcg (0.03 %) spray,non-aerosol 2 spray intranasal BID Qty: 30 0RF Rx Instructions: administer into each nostril Follow-up/Referrals: Radames Begum MD [Primary Care Provider] - Time of Disposition: 09:31
== END 2024-05-09 09:36 | disposition home or self-care (01) ==
PROVIDERS: Emergency Provider Nurse Practitioner Family; PCP Family Medicine
DX: H66.92 Otitis media, unspecified, left ear (principal); I25.10 Atherosclerotic heart disease of native coronary artery without angina pectoris; I10 Essential (primary) hypertension; E78.5 Hyperlipidemia, unspecified; I25.2 Old myocardial infarction; Z87.891 Personal history of nicotine dependence
CPT/HCPCS: 99213; G0463

== ENCOUNTER 2024-08-04 07:47 | Outpatient (CLI) | payer OTHER, SELFPAY ==
--- NOTE | ~2024-08-04 | MR_ITS ---
MRI of the abdomen: Clinical indication: Hepatomegaly Technique: Coronal SSFSE ARC, WATER:coronal LAVA-FLEX, Coronal 2D FIESTA FatSat, Axial SSFSE BH ARC, Axial 3D DualEcho BH, Axial SSFSE-IR, Axial DWI b=500, Axial 2D FIESTA FatSat, pre and dynamic postco ntrast Axial LAVA ARC, postcontrast Coronal In and Opposed phase LAVA FLEX. Following intravenous adm inistration of 18 cc MultiHance gadolinium, T1-weighted fat-sat imaging was performed in the axial an d coronal planes. Findings: Probable minimal gallbladder sludge. The common bile duct is normal in course and caliber. No filling defects are seen within the CBD. No evidence of intrahepatic biliary ductal dilatation. Th e pancreatic duct is normal in size. Liver measures 16.5 cm in cranial caudal length, upper limits of normal in size. 2 arterial phase enh ancing lesions in the liver unchanged from prior exam, without washout, larger measuring 2.6 cm, smal ler measuring 0.8 cm, located in the posterior right hepatic lobe. These lesions are stable from prio r exam. Spleen, pancreas, adrenals, kidneys appear normal. The aorta and the paraaortic regions appea r normal. No suspicious postcontrast enhancement seen. Impression: Stable hepatic lesions, as above, most likely FNH or adenomas. Reviewed, dictated and finalized at [facility]. Impression: Stable hepatic lesions, as above, most likely FNH or adenomas.
--- OUTSIDE RECORDS SUMMARY | 2024-08-04 07:51 | XMS_ITS | Referral Summary ---
Author Organization [facility] [address] [facility] [address] [place] [address] Care Team Providers Care Scheduling Assistant Name Role Phone Mecca Cherry MD Primary Care Provider Encounters Date Type Department Care Team Description 07/24/2024 11:19 AM CDT - 07/24/2024 11:59 PM CDT Hospital Encounter [facility] [id number] [place] [address] Sensorineural hearing loss (SNHL) of both ears Discharge Disposition: Discharge to home or self care 07/24/2024 11:19 AM CDT - 07/24/2024 11:59 PM CDT Hospital Encounter [facility] [address] [place] [address] Sensorineural hearing loss (SNHL) of both ears Discharge Disposition: Discharge to home or self care 07/03/2024 3:40 PM CDT [facility] [address] [facility] [address] [place] [address] Cleveland Chan MD Sensorineural hearing loss (SNHL) of both ears (Primary Dx) from Last 3 Months Allergies No known active allergies Medications nitroglycerin (NITROSTAT) 0.4 mg SL tablet DISSOLVE ONE TABLET UNDER TONGUE NEEDED FOR CHEST PAIN EVERY 5 MINUTES DIRECTED 2 Active aspirin 81 mg enteric coated tablet TAKE 1 TABLET BY MOUTH EVERY DAY IN THE EVENING 90 tablet 3 Active cetirizine (ZyrTEC) 10 mg tablet Take 1 tablet (10 mg total) by mouth 2 (two) times a day as needed 3 Active metoprolol tartrate (LOPRESSOR) 25 mg immediate release tablet TAKE 1 TABLET BY MOUTH EVERY 12 HOURS 180 tablet 3 5 Active atorvastatin (LIPITOR) 40 mg tablet TAKE 2 TABLETS BY MOUTH IN THE EVENING 180 tablet 3 5 Active atorvastatin (LIPITOR) 40 mg tablet TAKE 2 TABLETS BY MOUTH IN THE EVENING 180 tablet 3 4 025 Discontinued metoprolol tartrate (LOPRESSOR) 25 mg immediate release tablet TAKE 1 TABLET BY MOUTH EVERY 12 HOURS 180 tablet 3 4 025 Discontinued Active Problems Problem Noted Date Diagnosed Date Sensorineural hearing loss (SNHL) of both ears 0 07/05/2024 Recurrent chest pain 06/01/2023 Preop cardiovascular exam 11/23/2022 History of COVID-19 11/12/2021 Hyperlipidemia LDL goal <70 11/12/2021 Tobacco abuse 11/12/2021 Coronary artery disease invo lving [place] coronary artery of [place] heart without angina pectoris 07/06/2021 History of non-ST elevation myocardial infarctio n (NSTEMI) 07/06/2021 Presence of stent in coronary artery 07/06/2021 Immunizations Immunization Administration Dates Next Due Influenza, Quadrivalent, Spl it, Preservative Free, Intramuscular 03/06/2020 Tdap 10/02/2018,01/07/2016 Social History Tobacco Use Types Packs/Day Years Used Date Smoking Tobacco: Every Day Cigarettes Last attempted to quit: 05/18/2023 Vaping Smokeless Tobacco: Never Tobacco Cessation:Ready to Q uit: Not Asked; Counseling Given: Not Answered AUDIT-C Answer Date Recorded Q1: How often do you have a drink containing alc ohol? 2-3 times a week 07/03/2024 Average Number of Drinks Not on file 025 Frequency of Binge Drinking Not on file 06/22 Sex and Gender Information Value Date Recorded Sex Assigned at Not on file Legal Sex Male 5:29 AM [employer] Gender Identity Not on file Sexual Orientation Not on file Last Filed Vital Signs Vital Sign Reading Time Taken Comments Blood Pressure 128/79 07/03/2024 4:04 PM CDT Pulse 78 07/03/2024 4:04 PM CDT Temperature - - Respiratory Rate - - Oxygen Saturation 99% 02/07/2024 9:00 AM CDT Inhaled Oxygen Concentration - - Weight 96.8 kg (213 lb 4.8 oz) 07/03/2024 4:04 P M CDT Height 182.9 cm (6') 07/03/2024 4:04 PM CDT Body Mass Index 28.93 07/03/2024 4:04 PM CDT Plan of Treatment Scheduled Procedures Name Priority Associated Diagnoses Date/Ti me IMPLANTATION COCHLEAR DEVICE UNILATERAL. Sensorineural hearing loss (SNHL) of both ears Procedures Procedure Name Priority Date/Time Associated Diagnosis Comments MRI INTERNAL AUDITORY CANAL INCL BRAIN W WO CONTRAST Schedule Routine, Read Routine (OP Routine) 07/24/2024 12:50 PM CDT Sensorineural hearing loss (SNHL) of both ears CT TEMPORAL BONES WO CONTRAST Schedule Routine, Read Routine (OP Routine) 07/24/2024 11:38 AM CDT Sensorineural hearing loss (SNHL) of both ears from Last 3 Months Results * MRI Internal Auditory Canal incl Brain W WO Contrast (07/24/2024 12:50 PM CDT) Anatomical Region Laterality Modality Head and Neck N/A Magnetic Resonan ce 07/25/2024 9:34 AM CDT Impressions 07/25/2024 9:34 AM CDT No evidence of acoustic tumor. Normal posterior fossa. Nonspecific White matter lesions likely mild chronic microvascular disease. No acute findings Electronically signed by: Shyam Sams M.D. Narrative 07/25/2024 9:34 AM CDT EXAMINATION: MRI INTERNAL AUDITORY CANAL INCL BRAIN W WO CONTRAST HISTORY: 43-year-old man sensory neural hearing loss bilaterally. History of heart disease, tinnitus, asthma TECHNIQUE: Multiplanar multisequence spin-echo images obtained. Following the administration of 20 mL of gadolinium based contrast, repeat T1-weighted images were obtained. Special attention to the posterior fossa and internal canals. FINDINGS: Correlation is made with high-resolution CT of the petrous temporal bones performed on today's date. Ventricles and sulci age-appropriate. No midline shift or mass effect. FLAIR images demonstrate a few small areas of T2 hyperintensity in the subcortical white matter primarily in the bifrontal region. Diffusion images normal without restricted diffusion. Normal craniovertebral junction. Aqueduct is normal. Normal 4th ventricle. Due to fossa and suprasellar cistern are normal. T2-weighted images demonstrate normal flow voids within the sun'aq of Person. Brainstem and cerebellar hemispheres are normal. Mastoid air cells and paranasal sinuses normally aerated without mucoperiosteal disease or fluid levels. Cerebellopontine angles precontrast normal. Normal orbits. Deep venous sinuses are patent. Precontrasted detailed evaluation of the cerebellopontine angles demonstrate normal 7th and 8th nerve complexes without mass effect. Contrast administration, detailed evaluation of the posterior fossa and cerebellopontine angles demonstrate no abnormal enhancement within the 7th and 8th nerve complexes. No abnormal enhancement within the inner ear structures. No abnormal enhancement intracranially. Normal cavernous sinuses. Skull base appears to be normal. Procedure Note Shyam Sams MD - 07/25/2024 EXAMINATION: MRI INTERNAL AUDITORY CANAL INCL BRAIN W WO CONTRAST HISTORY: 43-year-old man sensory neural hearing loss bilaterally. History of heart disease, tinnitus, asthma TECHNIQUE: Multiplanar multisequence spin-echo images obtained. Following the administration of 20 mL of gadolinium based contrast, repeat T1-weighted images were obtained. Special attention to the posterior fossa and internal canals. FINDINGS: Correlation is made with high-resolution CT of the petrous temporal bones performed on today's date. Ventricles and sulci age-appropriate. No midline shift or mass effect. FLAIR images demonstrate a few small areas of T2 hyperintensity in the subcortical white matter primarily in the bifrontal region. Diffusion images normal without restricted diffusion. Normal craniovertebral junction. Aqueduct is normal. Normal 4th ventricle. Due to fossa and suprasellar cistern are normal. T2-weighted images demonstrate normal flow voids within the sun'aq of Person. Brainstem and cerebellar hemispheres are normal. Mastoid air cells and paranasal sinuses normally aerated without mucoperiosteal disease or fluid levels. Cerebellopontine angles precontrast normal. Normal orbits. Deep venous sinuses are patent. Precontrasted detailed evaluation of the cerebellopontine angles demonstrate normal 7th and 8th nerve complexes without mass effect. Contrast administration, detailed evaluation of the posterior fossa and cerebellopontine angles demonstrate no abnormal enhancement within the 7th and 8th nerve complexes. No abnormal enhancement within the inner ear structures. No abnormal enhancement intracranially. Normal cavernous sinuses. Skull base appears to be normal. IMPRESSION: No evidence of acoustic tumor. Normal posterior fossa. Nonspecific White matter lesions likely mild chronic microvascular disease. No acute findings Electronically signed by: Shyam Sams M.D. us Cleveland Chan MD IMG MRI PROCEDURES Final Resu lt * CT Temporal Bones WO Contrast (07/24/2024 11:38 AM CDT) Anatomical Region Laterality Modality Head and Neck N/A Computed Tomogra phy 07/25/2024 9:40 AM CDT Impressions 07/25/2024 9:40 AM CDT Normal study. Electronically signed by: Shyam Sams M.D. Narrative 07/25/2024 9:40 AM CDT EXAMINATION: CT TEMPORAL BONES WO CONTRAST HISTORY: 43-year-old man bilateral sensorineural hearing loss, tinnitus, candidate for cochlear implant TECHNIQUE: High-resolution noncontrast spiral CT of the petrous temporal bones with multiplanar reconstructions with bone algorithm FINDINGS: Correlation is made with MRI of the brain with and without contrast of the same date. Normal advanced manager radiograph. Minor mucosal thickening in the maxillary sinuses. Right petrous temporal bone: Normal aeration of the mastoid air cells without sclerosis, mucoperiosteal disease or bone destruction. The external auditory canal is normal with normal scutum. The bony erosion of the external bony canal. Middle ear cavity normally aerated with normal ossicular chain. Oval and round windows are normal. No bone destruction. Facial nerve canal normally positioned. Ossification stylohyoid ligament. Inner ear structures including internal or canal, Yvonne falciform is, semicircular canals vestibule and cochlea all appear to be normal. No bone destruction. Normal jugular fossa and carotid canal. Normal TM joint. Left petrous temporal bone: Normal aeration of mastoid air cells without sclerosis or mucoperiosteal disease. No bone destruction. Bony external auditory canal normal. Normal scutum. Normal TM joint. Middle ear cavity demonstrates normal ossicular chain. No fluid or mucosal thickening. Normal oval and round windows. No bony destruction. Inner ear structures normal. Facial nerve canals normally positioned. Ossification stylohyoid ligament. Normal skull base normal cranial fossa and carotid canal Procedure Note Shyam Sams MD - 07/25/2024 EXAMINATION: CT TEMPORAL BONES WO CONTRAST HISTORY: 43-year-old man bilateral sensorineural hearing loss, tinnitus, candidate for cochlear implant TECHNIQUE: High-resolution noncontrast spiral CT of the petrous temporal bones with multiplanar reconstructions with bone algorithm FINDINGS: Correlation is made with MRI of the brain with and without contrast of the same date. Normal advanced manager radiograph. Minor mucosal thickening in the maxillary sinuses. Right petrous temporal bone: Normal aeration of the mastoid air cells without sclerosis, mucoperiosteal disease or bone destruction. The external auditory canal is normal with normal scutum. The bony erosion of the external bony canal. Middle ear cavity normally aerated with normal ossicular chain. Oval and round windows are normal. No bone destruction. Facial nerve canal normally positioned. Ossification stylohyoid ligament. Inner ear structures including internal or canal, Yvonne falciform is, semicircular canals vestibule and cochlea all appear to be normal. No bone destruction. Normal jugular fossa and carotid canal. Normal TM joint. Left petrous temporal bone: Normal aeration of mastoid air cells without sclerosis or mucoperiosteal disease. No bone destruction. Bony external auditory canal normal. Normal scutum. Normal TM joint. Middle ear cavity demonstrates normal ossicular chain. No fluid or mucosal thickening. Normal oval and round windows. No bony destruction. Inner ear structures normal. Facial nerve canals normally positioned. Ossification stylohyoid ligament. Normal skull base normal cranial fossa and carotid canal IMPRESSION: Normal study. Electronically signed by: Shyam Sams M.D. Cleveland Chan MD IMG CT PROCEDURES Final Resul t from Last 3 Months Insurance [facility] [employer] [facility] H[employer]PPO Address: [address] [address] [place] [address] [facility] Address: [address] [address] [place] [address] [facility] [employer] [facility] [employer]PPO Address: [address] [address] [place] [phone] Care Teams Scheduling Assistant Relationship Specialty Start Date End Date Mecca Cherry MD [address] [address] PCP - General Family Medicine 06/13/21
--- OUTSIDE RECORDS SUMMARY | 2024-08-04 07:51 | XMS_ITS | Continuity of Care Document ---
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 Role Phone Fletcher PTJamie Unavailable Unavailable Procedures Procedure Date Progress Note Therapeutic Activities Neuromuscular Re-Ed Therapeutic Activities Neuromuscular Re-Ed Therapeutic Activities Neuromuscular Re-Ed Therapeutic Activities Neuromuscular Re-Ed Therapeutic Activities Neuromuscular Re-Ed PT Evaluation Low Complexity Therapeutic Activities Neuromuscular Re-Ed Therapeutic Activities Neuromuscular Re-Ed Therapeutic Exercise Therapeutic Activities Neuromuscular Re-Ed Therapeutic Exercise Therapeutic Activities Neuromuscular Re-Ed Therapeutic Exercise Therapeutic Activities Neuromuscular Re-Ed Therapeutic Exercise Therapeutic Activities Neuromuscular Re-Ed Therapeutic Exercise Therapeutic Activities Neuromuscular Re-Ed Therapeutic Exercise Therapeutic Activities Neuromuscular Re-Ed Therapeutic Exercise Therapeutic Activities Therapeutic Activities Neuromuscular Re-Ed Therapeutic Exercise Therapeutic Activities Neuromuscular Re-Ed Therapeutic Exercise Therapeutic Activities Neuromuscular Re-Ed Therapeutic Exercise Therapeutic Activities Neuromuscular Re-Ed Therapeutic Exercise PT Evaluation Low Complexity Therapeutic Activities Neuromuscular Re-Ed Therapeutic Exercise Advance Directives Directive Yes / No Effective Date File Name No Information Encounters Encounter Description Practice Location Reason(s) For Visit Diagnoses Date Provider Providers Copied on Encounter [facility] [address], [id number], tel:[phone] [place] No Information 4 Fletcher Warrenyn. . [facility] [address] [facility] [address], [id number], tel:[phone] [facility] No Information 4 Fletcher Jamie. . Referring Provider: Linda Basilio [address], [place], [address]. tel:[phone] [facility] [address], [id number], tel:[phone] [facility] No Information 4 Fletcher Warrenyn. . Referring Provider: Linda Basilio [address], [place], [address]. tel:[phone] [place] [address], [id number], tel:[phone] [facility] No Information 4 Fletcher Warrenyn. . Referring Provider: Linda Basilio [address], [place], [address]. tel: [facility], [address], [place], [place], [id number], [place] tel:[phone] [place] No Information 4 Fletcher Jamie. . Referring Provider: Linda Basilio [facility] [address], [place], [address]. tel: [facility] [address], [place], [place], [id number], [place] tel:[phone] [place] No Information 4 Fletcher Jamie. . Referring Provider: Linda Basilio [facility] [address], [place], [address]. tel: [facility], [address], [place], [place], [id number], [place] tel:[phone] [place] No Information 4 Fletcher Jamie. . Referring Provider: Linda Basilio [facility] [address], [place], [address]. tel: [facility], [place], [place], [id number], [place] tel:[phone] [place] No Information Jun-0 4 Fletcher Jamie. . Referring Provider: Linda Basilio [place] [address] [address], [place], [address]. tel: [facility], [place], [place], [id number], [place] tel:[phone] [place] No Information 4 Fletcher Jamie. . Referring Provider: Linda Basilio [facility] [address], [place], [address]. tel: [facility], [place], [place], [id number], [place] tel:[phone] [place] No Information 4 Fletcher Jamie. . Referring Provider: Fuentes Stevenson Aniyah [facility] [address], [place], [address]. tel:[phone] [facility], [address], [place], [place], [id number], [place] tel:[phone] [place] No Information Feb-1 - 4 Fletcher Jamie. . Referring Provider: Fuentes Stevenson [address] [place] [address] [address], [place], [address]. tel:[phone] [facility], [address], [place], [place], [id number], [place] tel:[phone] [place] No Information Feb-1 - 4 Fletcher Jamie. . Referring Provider: Fuentes Stevenson [address] [place] [address] [address], [place], [address]. tel:[phone] [facility], [address], [place], [place], [id number], [place] tel:[phone] [place] No Information Feb-1 2- 4 Fletcher Jamie. . Referring Provider: Fuentes Stevenson Aniyah [facility] [address], [place], [address]. tel:[phone] [facility], [address], [place], [place], [id number], [place] tel:[phone] [place] No Information Feb-0 - 4 Fletcher Jamie. . Referring Provider: Linda Basilio [facility] [address], [place], [address]. tel:[phone] [facility], [address], [place], [place], [id number], [place] tel:[phone] [place] No Information Feb-0 - 4 Rosie Spears. . Referring Provider: Linda Basilio [facility] [address], [place], [address]. tel:[phone] [facility], [address] [facility] [address], [place], [place], [id number], tel:[phone] [place] No Information 4 Fletcher Jamie. . Referring Provider: Fuentes Stevenson [address] [place] [address] [address], [place], [address]. tel:[phone] [facility] [address] [facility] [address], [place], [place], [id number], [place] tel:[phone] [place] No Information 4 Fletcher Jamie. . Referring Provider: Fuentes Stevenson [address] [place] [address] [address], [place], [facility]. tel:[phone] [facility] [address] [facility] [address], [place], [place], [id number], tel:[phone] [place] No Information 4 Fletcher Jamie. . Referring Provider: Fuentes Stevenson [address] [place] [address] [address], [place], [facility]. tel:[phone] [facility] [address] [facility] [address], [place], [place], [id number], tel:[phone] [facility] No Information 4 Fletcher Jamie. . Referring Provider: Fuentes Stevenson [address] [place] [address] [address], [place], [facility]. tel:[phone] Family History Family Member Type Diagnosis Age At Onset No Information Payers Payer name Insurance type Covered democrat ID Authorradhaa tiadelaida(s) [facility] CI [id number] Social History Type Description Quantity Date Captured Comments Sex Male Smoking Status No Information Chief Complaint And Reason For Visit No Information Reason For Referral Reason For Referral No Information History Of Present Illness Encounter Date Complaint History Of Prese nt Illness No Information Functional Status Date Functional Assessmen t No Information Instructions Date Instruction Additional Infor mation No Information Assessments Type Assessment Date No Information Patient Care Teams Name Effective Dates (start - stop) Status Members No Information
--- OUTSIDE RECORDS SUMMARY | 2024-08-04 07:51 | XMS_ITS | Clinical Summary ---
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 Name Role Phone Mecca Cherry MD Primary Care Provider Allergies No known active allergies Medications nitroglycerin [...] abuse 11/12/2021 Coronary artery disease invo [place]ving [place] coronary artery of [place] heart without angina pectoris 07/06/2021 History of non-ST elevation myocardial infarctio n (NSTEMI) 07/06/2021 Presence of stent in coronary artery 07/06/2021 Encounters Date Type Department Care Team Description 07/24/2024 11:19 AM CDT - 07/24/2024 11:59 PM CDT Hospital Encounter [facility] [id number] [place] [address] Sensorineural hearing loss (SNHL) of both ears Discharge Disposition: Discharge to home or self care 07/24/2024 11:19 AM CDT - 07/24/2024 11:59 PM CDT Hospital Encounter [facility] [address] [place] [address] Sensorineural hearing loss (SNHL) of both ears Discharge Disposition: Discharge to home or self care 07/03/2024 3:40 PM CDT Office Visit [facility]) - [facility] [address] [facility] Medical Office Building [address] [place] [address] Cleveland Chan MD Sensorineural hearing loss (SNHL) of both ears (Primary Dx) from Last 3 Months Immunizations Immunization Administration Dates Next Due Influenza, Quadrivalent, Spl it, Preservative Free, Intramuscular 03/06/2020 Tdap 10/02/2018,01/07/2016 Surgical History Surgery Date Site/Laterality Comments CARDIAC CATHETERIZATION NERVE REPAIR WISDOM TOOTH EXTRACTION SINUS SURGERY 04/24/2022 - 04/23/2023 MENISCUS SURGERY 04/24/2023 - 04/23/2024 repair Medical History Medical History Date Comments NSTEMI (non-ST elevated myocardial infarction) ( HCC) Asthma Bronchitis Coronary artery disease 06/13/2021 HL (hearing loss) Tinnitus Family History Medical History Relation Name Comments Heart attack Father Hyperlipidemia Father Hypertension Father Suicide Completion Mother Relation Name Status Comments Father (Age 59) Mother (Age 59) Social History Tobacco Use Types Packs/Day Years [...] on file 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 Gender Identity Not on file Sexual Orientation Not on file Obstetrics History Last Filed Vital Signs Vital Sign Reading [...] Sensorineural hearing loss (SNHL) of both ears Health Maintenance Due Date Last Done Comments Depression Screening 1979 Hepatitis C Screening 1980 Varicella Vaccines (1 of 2 - 13+ 2-dose series) 09/01/1992 Hepatitis B Screening 09/01/1997 Regular Well Visit/Exam 18-64 09/01/1997 Pneumococcal vaccine <65 (1 of 2 - PCV) 09/01/1998 Influenza Vaccine (Season Ended) 2024 03/06/2020 DTaP/Tdap/Td Vaccine (3 - Td or Tdap) 10/02/2028 10/02/2018, 01/07/2016 HPV Vaccines Aged Out No longer eligi ble based on patient's age to complete this topic Procedures Procedure Name Priority Date/Time Associated Diagnosis [...] images demonstrate normal flow voids within the ho-chunk of Person. Brainstem and cerebellar hemispheres are [...] images demonstrate normal flow voids within the ho-chunk of Person. Brainstem and cerebellar hemispheres are [...] findings Electronically signed by: Shyam Sams M.D. Cleveland Chan MD IM MRI PROCEDURES Final Resu lt * CT [...] without contrast of the same date. 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 Minor mucosal thickening in the maxillary [...] without contrast of the same date. 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 Minor mucosal thickening in the maxillary [...] Resul t from Last 3 Months Insurance [facility] CHOICE PLUS [facility] CHOICE PLUS [facility] CHOICE PLUS [place] [id number] Care Teams Fish Pitcher Relationship Specialty Start Date End Date Mecca Cherry MD [address] [facility] [address] [place] [address] PCP - General Family Medicine 06/13/21
== END 2024-08-04 07:48 | disposition home or self-care (01) ==
PROVIDERS: PCP Family Medicine; Visit Provider Student in an Organized Health Care Education/Training Program
DX: R16.0 Hepatomegaly, not elsewhere classified (principal); K76.9 Liver disease, unspecified
CPT/HCPCS: 74183; A9577